=== PATIENT | male | born 1950 | race Caucasian/White ===

== ENCOUNTER 2017-12-02 03:43 | Inpatient (IN) | payer BC, MEDICAID ==
[~2017-12-02] VITALS: Ht 182.9 cm; Wt 199.6 kg
[~2017-12-02 03:43] MED LIST: BEN10T GT; BENA10TA9 PO; DOXY100C2 PO; FURO40TA PO; HYDR-531 PO; IBUP800T24 PO; MORP1CAP31 PO; MORP30TA PO; POTA1TAB4 PO; POTA20TA53 PO
[2017-12-02] MEDS ORDERED: KETOROLAC TROMETH 30 MG/ML 1ML VIAL IM ONE (04:45)
[2017-12-02] MEDS ORDERED: MORPHINE SULFATE 4 MG/ML SYR/VIAL IV ONE (04:45)
[2017-12-02 06:00] LABS: Basophils # (auto) 0 uL; Basophils % (auto) 0.2 % (0.0-2.0); Eosinophils # (auto) 0.1 uL; Eosinophils % (auto) 2.3 % (0.0-7.0); Hematocrit 29.1 % (41.0-53.0); Hemoglobin 9.8 g/dL (13.5-17.5); Lymphocytes # (auto) 0.7 uL; Lymphocytes % (auto) 13.1 % (10.0-50.0); Mean Corpuscular Hemoglobin 28.4 pg (28.0-32.0); Mean Corpuscular Hgb Conc. 33.6 g/dL (32.0-36.0); Mean Corpuscular Volume 84.7 fL (80.0-100.0); Monocytes # (auto) 0.5 uL; Monocytes % (auto) 9.6 % (0.0-12.0); Neutrophils # (auto) 4.1 uL; Neutrophils % (auto) 74.8 % (37.0-80.0); Platelet Count (auto) 273 10^3/uL (140-450); Red Blood Cells 3.44 10^6/uL (4.5-5.90); Red Cell Distribution Width 16.4 % (11.8-14.3); White Blood Cell 5.4 10^3/uL (4.4-10.8)
[2017-12-02 06:10] LABS: INR 0.95 (0.9-1.15); Partial Thromboplastin Time 26.4 sec (22.64-33.71); Prothrombin Time 10.4 sec (9.37-12.3)
[2017-12-02] MEDS ORDERED: CLINDAMYCIN 900MG IV 50 ML IV ONE (06:15)
[2017-12-02] MEDS ORDERED: PIPERACILLIN-TAZOB 3.375GM 50 ML IV ONE (06:15)
[2017-12-02 06:18] LABS: Albumin 2.8 g/dL (3.4-5.0); BUN/Creatinine Ratio 20.5; Bilirubin, Total 0.8 mg/dL (0.2-1.0); CRP High Sensitivity 2.32 mg/dL (< 0.3); Calcium 8.1 mg/dL (8.5-10.1); Potassium 3.8 mmol/L (3.5-5.1); Total Protein 7.3 g/dL (6.4-8.2)
[2017-12-02] MEDS ORDERED: ACETAMINOPHEN 500 MG TAB PO PRN (08:15)
[2017-12-02] MEDS ORDERED: BEN10T PO (10:43)
[2017-12-02] MEDS: cefTRIAXone 1GM/10ml IVPUSH 10 ML IV SCH (11:30)
[2017-12-02] MEDS: MORPHINE SULFATE 4 MG/ML SYR/VIAL IV PRN ×3 (11:31→20:43)
[2017-12-02] MEDS: FUROSEMIDE 40 MG/4 ML VIAL IV SCH (11:40)
[2017-12-02] MEDS: BENAZEPRIL HCL 10 MG TAB PO SCH (11:46)
[2017-12-02 13:00] VITALS: BP 150/80
[2017-12-02] MEDS: HYDROcodone-ACET 5/325MG TAB PO PRN ×2 (13:39→22:02)
[2017-12-02] MEDS: CLINDAMYCIN 600MG IV 50 ML IV SCH ×2 (15:32→22:02)
[2017-12-02 17:00] VITALS: BP 120/54
[2017-12-02 22:00] VITALS: BP 144/63
[2017-12-03] MEDS: MORPHINE SULFATE 4 MG/ML SYR/VIAL IV PRN ×4 (02:41→21:35)
[2017-12-03 05:27] VITALS: BP 140/53
[2017-12-03] MEDS: CLINDAMYCIN 600MG IV 50 ML IV SCH ×3 (05:42→21:34)
[2017-12-03] MEDS: HYDROcodone-ACET 5/325MG TAB PO PRN (05:42)
[2017-12-03] MEDS: cefTRIAXone 1GM/10ml IVPUSH 10 ML IV SCH (08:51)
[2017-12-03 09:00] VITALS: BP 144/77
[2017-12-03] MEDS: FUROSEMIDE 40 MG/4 ML VIAL IV SCH (11:00)
[2017-12-03] MEDS: BENAZEPRIL HCL 10 MG TAB PO SCH (11:01)
[2017-12-03] MEDS: HYDROcodone-ACET 10/325MG TAB PO PRN ×5 (11:04→23:59)
[2017-12-03 13:00] VITALS: BP 147/84
[2017-12-03 18:00] VITALS: BP 141/78
[2017-12-03] MEDS: PRO-STAT 64 30ML PO SCH (19:46)
[2017-12-03 22:00] VITALS: BP 144/65
[2017-12-04] MEDS: MORPHINE SULFATE 4 MG/ML SYR/VIAL IV PRN ×6 (01:43→22:10)
[2017-12-04] MEDS: HYDROcodone-ACET 10/325MG TAB PO PRN ×5 (04:10→21:22)
[2017-12-04 05:00] VITALS: BP 160/83
[2017-12-04] MEDS: CLINDAMYCIN 600MG IV 50 ML IV SCH ×3 (05:43→21:58)
[2017-12-04 08:00] VITALS: BP 146/72
[2017-12-04 08:17] VITALS: BP 146/72
[2017-12-04] MEDS: PRO-STAT 64 30ML PO SCH ×2 (08:55→17:49)
[2017-12-04] MEDS: ASCORBIC ACID 500 MG TAB PO SCH (09:34)
[2017-12-04] MEDS: BENAZEPRIL HCL 10 MG TAB PO SCH (09:34)
[2017-12-04] MEDS: MULTIPLE VITAMINS W/ MINERALS TAB PO SCH (09:34)
[2017-12-04] MEDS: FUROSEMIDE 40 MG/4 ML VIAL IV SCH ×3 (09:35→22:05)
[2017-12-04] MEDS: cefTRIAXone 1GM/10ml IVPUSH 10 ML IV SCH (09:35)
[2017-12-04] MEDS ORDERED: NITROGLYCERIN 0.4 MG SL TAB SL PRN (12:45)
[2017-12-04] MEDS ORDERED: MORPHINE SULFATE 4 MG/ML SYR/VIAL IV PRN (12:45)
[2017-12-04 13:26] VITALS: BP 152/79
[2017-12-04 17:20] VITALS: BP 130/80
[2017-12-04 22:00] VITALS: BP 158/85
[2017-12-05] MEDS: HYDROcodone-ACET 10/325MG TAB PO PRN ×4 (01:03→14:32)
[2017-12-05] MEDS: MORPHINE SULFATE 4 MG/ML SYR/VIAL IV PRN ×3 (02:28→11:12)
[2017-12-05 05:00] VITALS: BP 162/83
[2017-12-05] MEDS: CLINDAMYCIN 600MG IV 50 ML IV SCH ×2 (05:39→14:30)
[2017-12-05 05:54] LABS: Basophils # (auto) 0 uL; Basophils % (auto) 0.3 % (0.0-2.0); Eosinophils # (auto) 0.1 uL; Eosinophils % (auto) 1.8 % (0.0-7.0); Hematocrit 28.5 % (41.0-53.0); Hemoglobin 9.4 g/dL (13.5-17.5); Lymphocytes # (auto) 0.8 uL; Mean Corpuscular Hemoglobin 28.1 pg (28.0-32.0); Mean Corpuscular Volume 85.2 fL (80.0-100.0); Monocytes # (auto) 0.5 uL; Monocytes % (auto) 9.5 % (0.0-12.0); Neutrophils # (auto) 4.1 uL; Neutrophils % (auto) 73.4 % (37.0-80.0); Platelet Count (auto) 232 10^3/uL (140-450); Red Blood Cells 3.35 10^6/uL (4.5-5.90); Red Cell Distribution Width 16.2 % (11.8-14.3); White Blood Cell 5.6 10^3/uL (4.4-10.8)
[2017-12-05 06:11] LABS: Albumin 2.6 g/dL (3.4-5.0); BUN/Creatinine Ratio 12.2; Calcium 8.1 mg/dL (8.5-10.1); Potassium 4.1 mmol/L (3.5-5.1)
[2017-12-05 06:14] LABS: Bilirubin, Total 0.7 mg/dL (0.2-1.0); Total Protein 6.9 g/dL (6.4-8.2)
[2017-12-05] MEDS: ONDANSETRON HCL 4 MG/2 ML VIAL IV PRN ×3 (06:42→11:12)
[2017-12-05] MEDS: FUROSEMIDE 40 MG/4 ML VIAL IV SCH ×2 (06:42→14:31)
[2017-12-05] MEDS: PRO-STAT 64 30ML PO SCH ×2 (08:00→18:00)
[2017-12-05 09:15] VITALS: BP 140/88
[2017-12-05] MEDS: ASCORBIC ACID 500 MG TAB PO SCH (09:40)
[2017-12-05] MEDS: MULTIPLE VITAMINS W/ MINERALS TAB PO SCH (09:40)
[2017-12-05] MEDS: BENAZEPRIL HCL 10 MG TAB PO SCH (09:40)
[2017-12-05] MEDS: cefTRIAXone 1GM/10ml IVPUSH 10 ML IV SCH (09:41)
[2017-12-05 13:00] VITALS: BP 148/76
[2017-12-05 16:14] VITALS: BP 148/76
[2017-12-05 16:32] VITALS: BP 146/74
== END 2017-12-05 18:00 | disposition home or self-care (01) | DRG 727 ==
LOC: EDBD 03:43 → ER 03:43 → MERGE 03:44 → OVERFLOW 03:44 → WEST WING 09:25
PROVIDERS: ADMIT Nurse Practitioner Family; ATTEND Internal Medicine
DX: N49.2 Inflammatory disorders of scrotum (principal); R53.2 Functional quadriplegia; E44.0 Moderate protein-calorie malnutrition; I42.9 Cardiomyopathy, unspecified; I11.0 Hypertensive heart disease with heart failure; E66.2 Morbid (severe) obesity with alveolar hypoventilation; I50.9 Heart failure, unspecified; Z68.43 Body mass index [BMI] 50.0-59.9, adult; R60.9 Edema, unspecified; D64.9 Anemia, unspecified; M10.9 Gout, unspecified; M79.3 Panniculitis, unspecified; Z74.01 Bed confinement status; Z82.49 Family history of ischemic heart disease and other diseases of the circulatory system; Z98.84 Bariatric surgery status; Z88.5 Allergy status to narcotic agent; Z88.0 Allergy status to penicillin
CPT/HCPCS: 36415; 71045; 72131; 73560; 80053; 83880; 85025; 85610; 85730; 86141; 87040; 93005; 96372; 96374; 96375; J1885; J2405; J2543; J3490

== ENCOUNTER 2019-03-16 01:52 | Emergency (ER) | payer BC, MEDICAID ==
[~2019-03-16] VITALS: Ht 182.9 cm; Wt 204.1 kg
[~2019-03-16 01:52] MED LIST changes: -BEN10T GT; +BEN10T PO; -DOXY100C2 PO
[2019-03-16] MEDS ORDERED: cloNIDine HCL 0.1 MG TAB PO ONE (04:00)
[2019-03-16] MEDS ORDERED: MORPHINE SULFATE 4 MG/ML SYR/VIAL IV ONE (04:00)
[2019-03-16] MEDS ORDERED: ONDANSETRON HCL 4 MG/2 ML VIAL IV ONE (04:00)
[2019-03-16] MEDS ORDERED: KETOROLAC TROMETH 30 MG/ML 1ML VIAL IV ONE (07:30)
[2019-03-16 09:21] VITALS: BP 162/87
== END 2019-03-16 09:22 | disposition home or self-care (01) ==
LOC: ER 01:52 → EDBD 01:52 → ER 09:22
DX: S40.011A Contusion of right shoulder, initial encounter (principal); S80.02XA Contusion of left knee, initial encounter; M54.9 Dorsalgia, unspecified; G89.29 Other chronic pain; E66.01 Morbid (severe) obesity due to excess calories; E78.5 Hyperlipidemia, unspecified; I11.0 Hypertensive heart disease with heart failure; I50.9 Heart failure, unspecified; I25.10 Atherosclerotic heart disease of native coronary artery without angina pectoris; Z88.5 Allergy status to narcotic agent; Z88.0 Allergy status to penicillin; Z88.8 Allergy status to other drugs, medicaments and biological substances; Z79.899 Other long term (current) drug therapy; Z68.44 Body mass index [BMI] 60.0-69.9, adult; W01.198A Fall on same level from slipping, tripping and stumbling with subsequent striking against other object, initial encounter; Y93.89 Activity, other specified; Y99.8 Other external cause status; Y92.89 Other specified places as the place of occurrence of the external cause
CPT/HCPCS: 36415; 71045; 73030; 73060; 73562; 84484; 93005; 96374; 96375; 99284; J1885; J2270; J2405

== ENCOUNTER 2019-08-01 13:49 | Inpatient (IN) | payer OTHER, MEDICAID ==
[~2019-08-01] VITALS: Ht 182.9 cm; Wt 209.0 kg
[~2019-08-01 13:49] MED LIST changes: +FURO1TAB31 PO; -FURO40TA PO; +POTA-220 PO; -POTA20TA53 PO
[2019-08-01 15:42] LABS: Basophils # (auto) 0 uL; Basophils % (auto) 0.2 % (0.0-2.0); Eosinophils # (auto) 0.1 uL; Eosinophils % (auto) 1.9 % (0.0-7.0); Hematocrit 27.3 % (41.0-53.0); Hemoglobin 8.7 g/dL (13.5-17.5); Lymphocytes # (auto) 0.6 uL; Lymphocytes % (auto) 15.1 % (10.0-50.0); Mean Corpuscular Hemoglobin 27.1 pg (28.0-32.0); Mean Corpuscular Hgb Conc. 31.9 g/dL (32.0-36.0); Monocytes # (auto) 0.4 uL; Monocytes % (auto) 8.7 % (0.0-12.0); Neutrophils % (auto) 74.1 % (37.0-80.0); Platelet Count (auto) 250 10^3/uL (140-450); Red Blood Cells 3.21 10^6/uL (4.5-5.90); Red Cell Distribution Width 16.6 % (11.8-14.3); White Blood Cell 4.1 10^3/uL (4.4-10.8)
[2019-08-01 15:52] LABS: Albumin 2.8 g/dL (3.4-5.0); BUN/Creatinine Ratio 17.8; Calcium 8.2 mg/dL (8.5-10.1); Magnesium 2.3 mg/dL (1.6-2.6); Potassium 3.9 mmol/L (3.5-5.1)
[2019-08-01 15:55] LABS: Bilirubin, Total 0.6 mg/dL (0.2-1.0); Total Protein 7.6 g/dL (6.4-8.2)
[2019-08-01] MEDS ORDERED: CLINDAMYCIN 900MG IV 50 ML IV ONE (16:45)
[2019-08-01] MEDS ORDERED: POTASSIUM CHL 20 Meq TABLET PO ONE (17:00)
[2019-08-01] MEDS ORDERED: ONDANSETRON ODT 4 MG TAB PO ONE (17:00)
[2019-08-01] MEDS ORDERED: MORPHINE SULF INJ 2 MG/ML SYRINGE 1ML IV PRN (18:45)
[2019-08-01] MEDS ORDERED: traMADol HCL 50 MG TAB PO PRN (18:45)
[2019-08-01] MEDS ORDERED: NITROGLYCERIN 0.4 MG SL TAB SL PRN (18:45)
[2019-08-01] MEDS ORDERED: LACTULOSE 20Gm/30ML SOLN PO PRN (18:45)
[2019-08-01] MEDS ORDERED: ACETAMINOPHEN 500 MG TAB PO PRN (18:45)
[2019-08-01] MEDS ORDERED: DEXTROSE (50%) 50ML SYRG IV PRN (18:45)
[2019-08-01] MEDS ORDERED: PROMETHAZINE HCL 25 MG/ML 1ML IV PRN (18:45)
[2019-08-01] MEDS: SODIUM CHLORIDE 0.9% 1,000 ML IV SCH (18:50)
[2019-08-01 20:00] VITALS: BP 146/73
[2019-08-01] MEDS: MORPHINE SULF 30 mg ER tab PO SCH (20:49)
[2019-08-01 22:00] VITALS: BP 146/73
[2019-08-01] MEDS: InsuLIN REG 1unit/0.01ml Soln (100units/ml) SC SCH (22:00)
[2019-08-01] MEDS: CLINDAMYCIN 600MG IV 50 ML IV SCH (22:00)
[2019-08-01] MEDS: ACCU-CHEK COMFORT CURVE STRIP VI SCH (22:00)
[2019-08-01] MEDS ORDERED: PERCOT PO (22:09)
[2019-08-01] MEDS: OXYCODONE W/ ACETAMINOPHEN 5/325MG TABLET PO PRN (22:45)
--- NOTE | 2019-08-02 | NUR ---
Paged and spoke with hospitalist. Patient takes 2 percocet 10/325 at home for chronic pain as well as the morphine tablet 30 mg. Ordered is percocet 5/325. He did not receive anything in ER all day for pain and feeling withdraws as well. No new orders received at this time. Patient standing in room. Walker given. Needs assistance getting up out of bed and calls often due to pain. Will continue to monitor.
[2019-08-02] MEDS: OXYCODONE W/ ACETAMINOPHEN 5/325MG TABLET PO PRN ×6 (02:50→22:41)
[2019-08-02] MEDS: SODIUM CHLORIDE 0.9% 1,000 ML IV SCH (04:36)
[2019-08-02 04:52] VITALS: BP 121/78
[2019-08-02] MEDS: CLINDAMYCIN 600MG IV 50 ML IV SCH (06:28)
--- NOTE | 2019-08-02 06:28 | NUR ---
Patient crying in pain. Paged hospitalist again, awaiting return call. Pics taken of right lower extremity and back side of scrotum. Right lower extremity is looking more inflamed than earlier in the night. Weeping serous fluid. Cleansed with normal saline pat dry, placed 2 abdominal pads and wrapped with kerlix.
--- NOTE | 2019-08-02 06:39 | NUR ---
Received orders for toradol x1. Will carry out
--- NOTE | 2019-08-02 06:42 | NUR ---
called power bender operator to have tour escort see patient per patient request. Was told to call back at [phone]. Will endorse to nurse.
[2019-08-02] MEDS ORDERED: KETOROLAC TROMETH 30 MG/ML 1ML VIAL IV ONE (06:45)
[2019-08-02] MEDS: InsuLIN REG 1unit/0.01ml Soln (100units/ml) SC SCH ×2 (07:00→11:30)
[2019-08-02] MEDS: ACCU-CHEK COMFORT CURVE STRIP VI SCH ×2 (07:11→11:30)
[2019-08-02 09:00] VITALS: BP 131/71
[2019-08-02] MEDS ORDERED: LEVOFLOXACIN 500MG 100 ML IV SCH (10:00)
[2019-08-02] MEDS: MORPHINE SULF 30 mg ER tab PO SCH ×2 (10:27→22:16)
[2019-08-02] MEDS: PANTOPRAZOLE 40 MG TAB PO SCH (10:27)
[2019-08-02 13:00] VITALS: BP 120/62
[2019-08-02] MEDS ORDERED: LINEZOLID 600MG/300ML 300 ML IV SCH (16:00)
[2019-08-02 16:03] LABS: INR 1.01 (0.9-1.15); Partial Thromboplastin Time 28.6 sec (23.64-32.05)
[2019-08-02 17:22] VITALS: BP 125/67
--- NOTE | 2019-08-02 19:15 | NUR ---
Opening Shift Note received report from Uma HERNANDEZ. Assumed care of patient, awake and alert. No S/S of distress/SOB, complaining of lower back pain. Instructed on POC and to call for assist PRN, will continue to monitor for changes Q1hr and PRN.
[2019-08-02] MEDS: LINEZOLID 600MG/300ML 300 ML IV SCH (20:49)
[2019-08-02 22:00] VITALS: BP 127/64
--- NOTE | 2019-08-02 22:25 | NUR ---
Patient crying stating the pain medications doesn't help at all, requesting if he could have a different kind of medication. Paged Dr. Ordoñez, awaiting for call back.
--- NOTE | 2019-08-02 22:53 | NUR ---
Dr. Ordoñez called back with order, carried out and followed through.
[2019-08-03] MEDS: OXYCODONE W/ ACETAMINOPHEN 5/325MG TABLET PO PRN ×5 (03:46→23:07)
--- NOTE | 2019-08-03 04:30 | NUR ---
Dressing changed on RLE wound.
[2019-08-03 05:00] VITALS: BP 138/84
[2019-08-03] MEDS: MORPHINE SULFATE 4 MG/ML SYR/VIAL IV PRN ×3 (05:37→21:06)
[2019-08-03 05:49] LABS: Basophils # (auto) 0 uL; Basophils % (auto) 0.8 % (0.0-2.0); Eosinophils # (auto) 0.1 uL; Eosinophils % (auto) 2.7 % (0.0-7.0); Hemoglobin 9.5 g/dL (13.5-17.5); Lymphocytes # (auto) 0.8 uL; Lymphocytes % (auto) 17.2 % (10.0-50.0); Mean Corpuscular Hemoglobin 27.5 pg (28.0-32.0); Mean Corpuscular Hgb Conc. 32.7 g/dL (32.0-36.0); Mean Corpuscular Volume 84.3 fL (80.0-100.0); Monocytes # (auto) 0.5 uL; Monocytes % (auto) 11.2 % (0.0-12.0); Neutrophils % (auto) 68.1 % (37.0-80.0); Platelet Count (auto) 301 10^3/uL (140-450); Red Blood Cells 3.44 10^6/uL (4.5-5.90); Red Cell Distribution Width 17.1 % (11.8-14.3); White Blood Cell 4.4 10^3/uL (4.4-10.8)
[2019-08-03 06:31] LABS: BUN/Creatinine Ratio 20.2; Calcium 8.8 mg/dL (8.5-10.1); Potassium 4.5 mmol/L (3.5-5.1)
--- NOTE | 2019-08-03 07:10 | NUR ---
CALLED [facility]THODONTIC [facility]AND [facility] OFFICE AND PORTABLE PHONE. NO ANSWER ON EITHER PHONE. NEED A PICC LINE FOR 201. LABS PTT WNL AND CONSENT SIGNED BY PHYSICIAN AND PATIENT.
--- NOTE | 2019-08-03 07:47 | NUR ---
SPOKE TO HELGA BUENROSTROREAL ESTATE AGENT/BROKER INFORMED HER ABOUT THE ORDER FOR PICC LINE FOR HOME ANTIBIOTICS.
[2019-08-03 09:24] VITALS: BP 131/71
[2019-08-03] MEDS: LINEZOLID 600MG/300ML 300 ML IV SCH (09:59)
[2019-08-03] MEDS: PANTOPRAZOLE 40 MG TAB PO SCH (10:00)
[2019-08-03] MEDS: MORPHINE SULF 30 mg ER tab PO SCH ×2 (10:35→22:07)
[2019-08-03] MEDS: NYSTATIN TOPICAL POWDER 15GM TOP SCH ×2 (12:30→22:07)
[2019-08-03 13:00] VITALS: BP 98/64
--- NOTE | 2019-08-03 13:15 | NUR ---
PICC line placement Patient/Patient significant other educated on need for PICC line placement. All risks and benefits explained and all questions and concerns addressed prior to procedure. Noted past medical history and allergies with no contraindications. INR and Plt counts within acceptable range. 5 fr PICC line inserted via left basilic vein using [employer]'s [employer] US and Tip Location System. Sterile technique with maximum barrier precautions utilized. Blood return obtained from each of the 2 lumens and each flushed easily with NS using proper technique. PICC secured with Stat-lock; biodisc and occlusive dressing applied. Less than 5ml EBL noted during procedure. PICC line 53.5cm internally w/ 0cm externally. Stat portable chest x-ray obtained for PICC tip placement. To notify event staff when line able to be used. *Baseline Arm Circumference 44cm at 1cm above insertion site. PICC lot # [id number]. Note:
[2019-08-03] MEDS ORDERED: LIDOCAINE 1% (LOCAL ANESTH.) PF 5ml SDV ID ONE (13:30)
[2019-08-03] MEDS ORDERED: ERTAPENEM SOD 1 GM INJ VIAL IM SCH (14:00)
--- NOTE | 2019-08-03 14:01 | NUR ---
OK to use PICC line Xray completed. PCXR shows PICC line tip in the region of the mid SVC; radiologist confirmation pending. Daphney Eaton. notified now OK to use PICC line.
[2019-08-03] MEDS ORDERED: ERTAPENEM SOD 1 GM INJ VIAL IV SCH (15:30)
[2019-08-03 16:46] VITALS: BP 127/59
--- NOTE | 2019-08-03 17:07 | NUR ---
WOUND CARE NOTE: IN TO SEE PATIENT AT THIS TIME PER WOUND CARE CONSULT REQUEST. PATIENT WAS ADMITTED TO ON LICENSE OF [facility] WITH DIAGNOSIS OF FOOT CELLULITIS. CURRENT LYNETTE SCORE IS 16. PATIENT IS FULLY AMBULATORY. PATIENT NOTED TO HAVE WOUNDS UPON ADMIT. WOUND PHOTOS TAKEN AT THAT TIME BY BEDSIDE NURSE FOR REFERENCE. PATIENT IS OBESE, WEIGHING 209 KG. ORDERED SPECIALTY BARIATRIC AIR BED AT THIS TIME. PATIENT TO BE PLACED, PENDING DELIVERY BY [facility]. PATIENT IS NOTED TO HAVE A STAGE 3 PRESSURE INJURY TO THE LEFT UPPER POSTERIOR THIGH. WOUND MEASURES 2 X 1 X 0.2 CM. WOUND BED IS PALE RED, WITH THIN LAYER YELLOW SLOUGH NOTED. APPLIED THERAHONEY TO OPEN WOUND BED AREA FOR AUTOLYTIC DEBRIDEMENT. PERIWOUND IS EDEMATOUS, PALE RED/PINK. COVERED WOUND WITH OPTIFOAM GENTLE DRESSING. PATIENTS LEFT ANTERIOR BRIONES IS NOTED TO HAVE HYPERKERATOTIC SKIN IN MULTIPLE LAYERS. ANTERIOR BRIONES IS NOTED TO HAVE VENOUS STASIS DERMATITIS.BRIONES IS MACERATED D/T MODERATE AMOUNT OF SEROUS WEEPING. APPLIED THERAHONEY, OPTILOCK DRESSING, WRAPPING LEG WITH 2 LARGE KERLIX, STOCKINETTE. BILATERAL LEGS ARE WITH LYMPHEDEMA. PATIENT HAS VERY PENDULOUS ABDOMINAL PANNOUS AND SCROTUM, WITH HYPERKERATOTIC SKIN NOTED. LEFT OPEN TO AIR. RECOMMEND: ELEVATION OF BLE UP ONTO PILLOWS WHEN IN BED/CHAIR; SPECIALTY BARIATRIC AIR BED, DAILY/PRN DRESSING CHANGES TO LLE, LEF UPPER THIGH WOUNDS, DIETARY CONSULT, CONTINUED MONITORING BY WOUND CARE TEAM. Addendum: 08/03/19 at 1717 by Salome Verduzco RN Amended: Links added.
[2019-08-03] MEDS: ERTAPENEM GM in SODIUM CHL 0.9% 50 ML IV SCH (18:04)
--- NOTE | 2019-08-03 19:10 | NUR ---
Opening Shift Note Received report from Uma HERNANDEZ. Assumed care of patient, awake and alert. No S/S of distress/SOB, still with complaints of back pain. Instructed on POC and to call for assist PRN, will continue to monitor for changes Q1hr and PRN.
--- NOTE | 2019-08-03 21:00 | NUR ---
Johnathan Buck air mattress has been delivered to patient's room. Bed was set up and tried by the patient, however patient refused using it at this time stating he is not comfortable with the bed. Bed was placed in the west unit area in case patient change his mind.
[2019-08-03] MEDS: SODIUM CHLOR 0.9% PF (SALINE LOCK) 10ML VIAL/SYR IV SCH (22:06)
[2019-08-04] MEDS: MORPHINE SULFATE 4 MG/ML SYR/VIAL IV PRN ×5 (01:06→22:41)
[2019-08-04 05:00] VITALS: BP 123/69
[2019-08-04] MEDS: OXYCODONE W/ ACETAMINOPHEN 5/325MG TABLET PO PRN ×4 (05:25→20:08)
[2019-08-04 06:09] LABS: Basophils # (auto) 0 uL; Basophils % (auto) 0.5 % (0.0-2.0); Eosinophils # (auto) 0.1 uL; Hematocrit 24.4 % (41.0-53.0); Lymphocytes # (auto) 0.7 uL; Lymphocytes % (auto) 18.8 % (10.0-50.0); Mean Corpuscular Hemoglobin 27.7 pg (28.0-32.0); Mean Corpuscular Hgb Conc. 32.8 g/dL (32.0-36.0); Mean Corpuscular Volume 84.5 fL (80.0-100.0); Monocytes # (auto) 0.5 uL; Monocytes % (auto) 12.9 % (0.0-12.0); Neutrophils # (auto) 2.6 uL; Neutrophils % (auto) 65.8 % (37.0-80.0); Nucleated Red Blood Cells % 0.1 %; Platelet Count (auto) 203 10^3/uL (140-450); Red Blood Cells 2.88 10^6/uL (4.5-5.90); Red Cell Distribution Width 16.8 % (11.8-14.3); White Blood Cell 3.9 10^3/uL (4.4-10.8)
[2019-08-04 06:44] LABS: Potassium 4.4 mmol/L (3.5-5.1)
[2019-08-04 07:06] LABS: BUN/Creatinine Ratio 18.5; Calcium 8.4 mg/dL (8.5-10.1); Magnesium 2.2 mg/dL (1.6-2.6)
[2019-08-04 08:30] VITALS: BP 131/55
[2019-08-04] MEDS: ERTAPENEM GM in SODIUM CHL 0.9% 50 ML IV SCH (09:32)
[2019-08-04] MEDS: MORPHINE SULF 30 mg ER tab PO SCH ×2 (09:33→21:41)
[2019-08-04] MEDS: SODIUM CHLOR 0.9% PF (SALINE LOCK) 10ML VIAL/SYR IV SCH ×2 (09:33→22:37)
[2019-08-04] MEDS: PANTOPRAZOLE 40 MG TAB PO SCH (09:33)
[2019-08-04] MEDS: NYSTATIN TOPICAL POWDER 15GM TOP SCH ×2 (09:33→21:41)
[2019-08-04 12:30] VITALS: BP 128/76
[2019-08-04] MEDS ORDERED: FUROSEMIDE 40 MG/4 ML VIAL IV ONE (12:45)
--- NOTE | 2019-08-04 14:43 | NUR ---
NUTRITION CONSULT/ASSESSMENT NOTES Please refer to link notes of nutrition screen form filed under the intervention section of the plan of care for further details. Est. Needs based on AdBw (113 kg): 2250 kcal to 2850 kcal (20-25 kcal/kgBW), 113 gms to 137 gms pro (1.0-1.2 gms/kgBW). Will continue to monitor pertinent labs and reassess nutrient need prn Thank you for this consult. Addendum: 08/04/19 at [address] Amended: Links added.
[2019-08-04] MEDS: Ensure Enlive Strawberry 8oz Bottle PO SCH ×3 (15:04→21:43)
--- NOTE | 2019-08-04 16:00 | NUR ---
PAGED BELLY ROLLER AS400 OPERATOR, TALIB, FOR IV INVANZ AND DISCHARGE PLANNING.
[2019-08-04 17:00] VITALS: BP 139/77
[2019-08-04] MEDS: FUROSEMIDE 40 MG/4 ML VIAL IV SCH (17:31)
--- NOTE | 2019-08-04 19:20 | NUR ---
RECEIVED PATIENT, AWAKE, ALERT, ORIENTED X4. NO S/S OF RESPIRATORY DISTRESS. ORIENTED ON PLAN OF CARE. BED IS LOCKED AND IN LOWEST POSITION, SIDE RAILS UP X2, CALL LIGHT WITHIN REACH. WILL CONTINUE TO MONITOR
[2019-08-04 22:00] VITALS: BP 134/70
[2019-08-05] MEDS: OXYCODONE W/ ACETAMINOPHEN 5/325MG TABLET PO PRN ×4 (00:51→20:38)
[2019-08-05] MEDS: MORPHINE SULFATE 4 MG/ML SYR/VIAL IV PRN ×5 (02:43→23:39)
[2019-08-05 05:00] VITALS: BP 130/79
[2019-08-05] MEDS: FUROSEMIDE 40 MG/4 ML VIAL IV SCH ×3 (05:53→19:20)
[2019-08-05 05:56] LABS: BUN/Creatinine Ratio 22.5; Calcium 8.3 mg/dL (8.5-10.1); Potassium 4.5 mmol/L (3.5-5.1)
[2019-08-05] MEDS: Ensure Enlive Strawberry 8oz Bottle PO SCH ×4 (06:25→22:03)
--- NOTE | 2019-08-05 07:35 | NUR ---
CARE ENDORSED TO AM SHIFT RN
[2019-08-05 09:00] VITALS: BP 122/65
--- NOTE | 2019-08-05 09:32 | NUR ---
I faxed home IV ATB/home health order to [facility].
[2019-08-05] MEDS: NYSTATIN TOPICAL POWDER 15GM TOP SCH ×2 (09:36→22:03)
[2019-08-05] MEDS: MORPHINE SULF 30 mg ER tab PO SCH ×2 (09:37→22:03)
[2019-08-05] MEDS: ERTAPENEM GM in SODIUM CHL 0.9% 50 ML IV SCH (09:37)
[2019-08-05] MEDS: PANTOPRAZOLE 40 MG TAB PO SCH (09:37)
[2019-08-05] MEDS: SODIUM CHLOR 0.9% PF (SALINE LOCK) 10ML VIAL/SYR IV SCH ×2 (09:37→22:03)
--- NOTE | 2019-08-05 10:39 | NUR ---
Pt is an alert and oriented male that resides with his spouse, nicky, who is his primary joinery machinist. Pt has a cane and a fww in the home. Pt has also been followed by [facility] prior to admission. Per MD orders pt will need continued home health but for IV ABX upon discharge. Library Supervisor, Annalisa, to followup regarding contracted providers and authorization for home health services and provide that information to to complete home health order. Will continue to monitor and provide intervention as needed. Addendum: 08/05/19 at 1042 by GEOVANNA WILLINGHAM Amended: Links added.
--- NOTE | 2019-08-05 11:14 | NUR ---
1100 08/05/19 I called [facility] [phone] and spoke with Naheed to request inpatient authorization for this patient. Per Naheed, the tracking number previously provided is now an inpatient authorization number ([id number]). Naheed did receive the order for home IV ATB/home health, [facility] let her know we faxed home health portion to [facility], she said they can contact her for authorization if needed.
[2019-08-05 12:00] VITALS: BP 146/96
--- NOTE | 2019-08-05 12:34 | NUR ---
I spoke with Lynette at [facility], faxed her H&P, CXR, medication list as requested.
--- NOTE | 2019-08-05 12:40 | NUR ---
SPOKE TO HELGA AT [facility], QUESTIONS AND CONCERNS ADDRESSED. PER HELGA; WILL CALL BACK WITH FURTHER INSTRUCTIONS REGARDING HOME SERVICES FOR IV ABX INFUSION.
--- NOTE | 2019-08-05 14:01 | NUR ---
DR. SIMEON IN TO SEE PT. PT IN AGREEMENT WITH CARE. PER MD; PT WILL NEED TRANSPORTATION ARRANGEMENTS WHEN DISCHARGED HOME. CARE MANAGEMENT TEAM MADE AWARE OF TRANSPORTATION NEEDS UPON DISCHARGE.
--- NOTE | 2019-08-05 14:28 | NUR ---
D/C Planning Per consult for IV INVANZ 1 GM daily for 6 weeks. Insecticide Sprayer Annalisa will be processing IV antibiotic order. Contacted [facility] Ph:) Fax:) faxed medical records. Per Ghazala from [facility] Pt has been accepted and service to start within 48hrs upon d/c day. Informed DAVID Goyal. Addendum: 08/05/19 at 1432 by ANAMIKA ZAMORA Amended: Links added.
--- NOTE | 2019-08-05 14:29 | NUR ---
1420 08/05/19 I called [facility] Terra[employer] Layer Naheed, she stated that she has given authorization to [facility], they are accepting the patient. Waiting to hear back from YOLA Wilder-elizabet Farfan at [facility], they do not provide transportation home for patients.
--- NOTE | 2019-08-05 15:10 | NUR ---
PEDRO FROM [facility] INFORMED THAT INVANZ INFUSION IS SET. CARE MANAGEMENT DEPT. INFORMED; CARE MANAGEMENT DEPT. TO ARRANGE TRANSPORTATION.
--- NOTE | 2019-08-05 15:20 | NUR ---
I received a call from Lynette at [facility], they spoke with patient-delivery time set for 1030am tomorrow. [facility] to visit patient at 12 noon tomorrow.
--- NOTE | 2019-08-05 16:50 | NUR ---
WOUND CARE COMPLETED TO RIGHT BRIONES, DRESSING CHANGED, THERA-HONEY WITH OPTILOCK DRESSING PLACED. PICC LINE DRESSING CHANGED DUE TO BLOOD STAINED, STAT LOCK AND BIO PATCH. STERILE TECHNIQUE USED, PT TOLERATED PROCEDURE WELL.
[2019-08-05 17:00] VITALS: BP 107/80
--- NOTE | 2019-08-05 18:01 | NUR ---
CLAUS FROM [facility] AWARE OF PT'S TRANSPORT NEEDS PER REQUEST. PER CLAUS; WILL CALL BACK WITH FURTHER ARRANGEMENTS.
[2019-08-05 18:13] VITALS: BP 107/80
--- NOTE | 2019-08-05 18:30 | NUR ---
CHATO FROM [facility] INFORMED THAT [facility] CONTACTED [facility] FOR SERVICES. CHATO TO CALL BACK WITH TITLE 1 TUTOR TIME. PT AWARE OF STATUS, PT IN AGREEMENT WITH PLAN.
--- NOTE | 2019-08-05 18:47 | NUR ---
SISTER KULDEEP POWELL (TEL# [phone]) called and voices concern re: discharge with home health [place] services, per sister pt is refusing [facility] services and requesting another home health. She also stated pt need help at home, is unable to take care of him and their child who is paraplegic and is a total care. Will page hospitalist. Addendum: 08/05/19 at 1928 by Charline Em RN SISTER IS ALSO REQUESTING TO BE CALLED FOR ANY DISCHARGE PLANS.
--- NOTE | 2019-08-05 18:48 | NUR ---
Called Dr. Ordoñez and informed him re: pt's and sister's concern, per ok to hold DC and address whatever pt needs. Will order social service.
--- NOTE | 2019-08-05 19:01 | NUR ---
Went in to see pt, per pt he is refusing [place] services and blaming the nurses from home health about worsening of his leg wound. He verified about his sister concern and agreed about changing the home health company.
--- NOTE | 2019-08-05 19:10 | NUR ---
[facility] ARRIVED TO UNIT FOR CRYPTOGRAPHIC CLERK. ADVISED [facility] TRANSPORT TEAM THAT DISCHARGE WAS HELD BY . TRANSPORT SPOKE TO CHARGE NURSE.
--- NOTE | 2019-08-05 19:10 | NUR ---
SOCIAL SERVICE SILK SCREENER CALLED BACK AND WAS NOTIFIED RE:PT AND SISTER'S CONCERN, WILL ADDRESS IT TOMORROW. SOCIAL SERVICE WAS ORDERED.
[2019-08-05 21:45] VITALS: BP 126/70
[2019-08-06] MEDS: OXYCODONE W/ ACETAMINOPHEN 5/325MG TABLET PO PRN ×4 (00:54→16:27)
[2019-08-06] MEDS: MORPHINE SULFATE 4 MG/ML SYR/VIAL IV PRN (04:21)
[2019-08-06 05:43] VITALS: BP 146/75
[2019-08-06] MEDS: FUROSEMIDE 40 MG/4 ML VIAL IV SCH (05:56)
[2019-08-06] MEDS: Ensure Enlive Strawberry 8oz Bottle PO SCH ×2 (05:57→12:00)
--- NOTE | 2019-08-06 07:34 | NUR ---
CARE ENDORSED TO AM SHIFT RN
--- NOTE | 2019-08-06 07:44 | NUR ---
Opening Shift Note Assumed care of patient. Patient is awake alert and oriented. Patient is able to make needs known. No S/S of distress noted. Instructed patient on plan of care and to call for assist as needed. Will continue to monitor.
[2019-08-06 09:00] VITALS: BP 136/61
[2019-08-06] MEDS: MORPHINE SULF 30 mg ER tab PO SCH (10:40)
[2019-08-06] MEDS: ERTAPENEM GM in SODIUM CHL 0.9% 50 ML IV SCH (10:51)
[2019-08-06] MEDS: PANTOPRAZOLE 40 MG TAB PO SCH (10:51)
[2019-08-06] MEDS: NYSTATIN TOPICAL POWDER 15GM TOP SCH (10:52)
[2019-08-06] MEDS: SODIUM CHLOR 0.9% PF (SALINE LOCK) 10ML VIAL/SYR IV SCH (10:52)
--- NOTE | 2019-08-06 10:55 | NUR ---
Spoke to Hospitalist Spoke to MD Ordoñez, notified of patient's status including patient refused to go home yesterday because he requests to have "a different HH company". MD aware of patient's c/o pain and patient stating "pain is never less than a 10". Per MD Ordoñez, he provided prescription for Percocet and pt already on MS Contin at home and to cont that on d/c. Awaiting HH to be arranged by social research assistant. Will dc as ordered as soon as HH is arranged.
--- NOTE | 2019-08-06 11:45 | NUR ---
0930 08/06/19 Contacted Noelle at [facility] and requested authorization to be provided for patient's continued stay. Per Noelle, patient's stay has been authorized through yesterday 08/05. She will have adult protective caseworker Naheed call me regarding discharge plan for this patient.
--- NOTE | 2019-08-06 11:47 | NUR ---
1145 08/06/19 Received a message from Naheed at [facility]. [facility]heed regarding the plan of care for this patient and was told she is on the other line-per Greer she will have her give me a call back.
--- NOTE | 2019-08-06 12:25 | NUR ---
environmental services aide at bedside Ryan at bedside to speak to patient and patient's sister regarding HH.
--- NOTE | 2019-08-06 12:56 | NUR ---
Spoke to GER and MD [facility]ONE snf Per Annalisa manager of case management, recommending SNF due to patient's needs. I spoke to MD Ordoñez and informed him regarding rec from CM. New orders received for SNF transfer for IV abx and wound care, bariatric bed. Annalisa notified. Awaiting transfer at this time. Cont care
[2019-08-06 13:00] VITALS: BP 127/70
--- NOTE | 2019-08-06 13:07 | NUR ---
1300 08/06/19 I contacted [facility] Cane Weigher Naheed to discuss the plan of care for this patient-asked if they would authorized SNF placement for the IV ATB-she said they would if ordered by MD. I called Dr. Ordoñez and left message regarding the same.
--- NOTE | 2019-08-06 14:00 | NUR ---
Patient refusing SNF transfer patient and patient's sister refusing SNF at this time stating patient "needs to go back home". Patient's sister spoke to [facility] social worker. Awaiting HH?
--- NOTE | 2019-08-06 14:58 | NUR ---
WOUND CARE NOTE Wound care performed as ordered. Patient tolerated procedure well.
--- NOTE | 2019-08-06 16:20 | NUR ---
Discharge instructions given as ordered. insole department worker Earnestine and this rn at bedside to notify patient Home Health [facility] will be staring services within 24-48hrs patient agrees for discharge and verbalized understanding. Encourage to follow up with PMD as instructed. All questions and concerns addressed. Patient verbalized understanding. This rn asked patient if he would like me to discuss dc instructions and talk to his sister and he states "nope I can talk to her myself". Patient is alert and cognitive. Patient refusing dc wound photos at this time stating "No, they already got pictures". Medication reconciliation form completed and copy given to patient. Patient to be dc'd home with PICC line for IV abx as ordered per MD. PICC line noted intact, and patent. Telemetry unit returned to ICU and kusum Garcia notified. Patient awaiting last picker from [facility] at 1700. No distress noted at this time, pt requesting pain medication. Will medicate as ordered.
--- NOTE | 2019-08-06 16:53 | NUR ---
D/C Planning Followed up call to [facility] Ph:) spoke to Naheed. Advised Naheed Pt does not want to go go a [facility] and agrees to go home with home health. Per Naheed from [facility], [facility] will continue to care for patient. Contacted [facility] Ph:( [phone]) Fax:) faxed medical records. Per Ghazala from [facility] Pt has been accepted and service to start within 48hrs upon d/c day. DAVID Borrego was at bedside when information was given to Pt regarding home health and transportation co-pay of 195 dollars. Pt verbalize understanding d/c plan. Informed DAVID Borrego. Addendum: 08/06/19 at 1721 by ANAMIKA ZAMORA Amended: Links added.
[2019-08-06 17:00] VITALS: BP 134/66
--- NOTE | 2019-08-06 17:15 | NUR ---
D/C Planning Contacted [facility] transport Ph:) spoke to Wanda. Advised Wanda from [facility] to arrange transportation at 17:00 via [employer] with oxygen. Authorization was given to [facility] [id number]. Informed DAVID Borrego. Addendum: 08/06/19 at 1721 by ANAMIKA HUGGISN Amended: Links added.
--- NOTE | 2019-08-06 17:17 | NUR ---
Patient taken to ambulance via stretcher with all personal belongings, accompanied by [facility] staff and portable oxygen. Patient states he has oxygen at home already. No distress noted at time of departure.
== END 2019-08-06 17:20 | disposition home health service (06) | DRG 638 ==
LOC: EDBD 13:49 → ER 13:49 → TELE 13:50 → TELE-CENTR 19:44
PROVIDERS: ADMIT Internal Medicine; ATTEND Internal Medicine Geriatric Medicine
PROC: 02HV33Z Insertion of Infusion Device into Superior Vena Cava, Percutaneous Approach (ICD-10-PCS; principal; 2019-08-03)
DX: E11.69 Type 2 diabetes mellitus with other specified complication (principal); L03.115 Cellulitis of right lower limb; Z68.44 Body mass index [BMI] 60.0-69.9, adult; M86.8X6 Other osteomyelitis, lower leg; E66.01 Morbid (severe) obesity due to excess calories; I50.9 Heart failure, unspecified; D63.8 Anemia in other chronic diseases classified elsewhere; N20.0 Calculus of kidney; G89.29 Other chronic pain; I89.0 Lymphedema, not elsewhere classified; I11.0 Hypertensive heart disease with heart failure; Z82.49 Family history of ischemic heart disease and other diseases of the circulatory system; Z88.5 Allergy status to narcotic agent; Z88.0 Allergy status to penicillin; Z98.84 Bariatric surgery status; Z83.3 Family history of diabetes mellitus; Z90.49 Acquired absence of other specified parts of digestive tract
CPT/HCPCS: 36415; 36569; 71045; 80048; 80053; 82962; 83036; 83735; 85025; 85610; 85730; G0378; J1335; J1885; J1956; J3490; Q0162

== ENCOUNTER 2019-08-28 20:45 | Inpatient (IN) | payer OTHER, MEDICAID ==
[~2019-08-28] VITALS: Ht 182.9 cm; Wt 212.4 kg
[~2019-08-28 20:45] MED LIST changes: -BEN10T PO; -BENA10TA9 PO; -HYDR-531 PO; -IBUP800T24 PO; -MORP30TA PO; +PERCOT PO; -POTA-220 PO
[2019-08-28 22:48] LABS: Basophils # (auto) 0 uL; Lymphocytes # (auto) 0.5 uL; Monocytes # (auto) 0.4 uL; Red Cell Distribution Width 16.8 % (11.8-14.3)
[2019-08-28 22:50] LABS: Basophils % (auto) 0.3 % (0.0-2.0); Eosinophils # (auto) 0.1 uL; Eosinophils % (auto) 1.3 % (0.0-7.0); Hematocrit 25.9 % (41.0-53.0); Hemoglobin 8.5 g/dL (13.5-17.5); Lymphocytes % (auto) 11.9 % (10.0-50.0); Mean Corpuscular Hemoglobin 27.4 pg (28.0-32.0); Mean Corpuscular Hgb Conc. 32.7 g/dL (32.0-36.0); Mean Corpuscular Volume 83.9 fL (80.0-100.0); Monocytes % (auto) 8.8 % (0.0-12.0); Neutrophils # (auto) 3.5 uL; Neutrophils % (auto) 77.7 % (37.0-80.0); Platelet Count (auto) 177 10^3/uL (140-450); Red Blood Cells 3.09 10^6/uL (4.5-5.90); White Blood Cell 4.5 10^3/uL (4.4-10.8)
[2019-08-28 23:05] LABS: Alanine Aminotransferase 12 U/L (16-61); Albumin 2.7 g/dL (3.4-5.0); Anion Gap 3 (5-15); Aspartate Aminotransferase 25 U/L (15-37); BUN/Creatinine Ratio 21.5; Blood Urea Nitrogen 17 mg/dL (7-18); Calcium 8.1 mg/dL (8.5-10.1); Carbon Dioxide 30 mmol/L (21-32); Chloride 105 mmol/L (98-107); GFR African American 125 mL/min; GFR Non-African American 103 mL/min; Glucose 94 mg/dL (74-106); Magnesium 2.3 mg/dL (1.6-2.6); Potassium 4.2 mmol/L (3.5-5.1); Sodium 138 mmol/L (136-145)
[2019-08-28 23:10] LABS: Alkaline Phosphatase 80 U/L (45-117); Bilirubin, Total 0.8 mg/dL (0.2-1.0); Total Protein 7.7 g/dL (6.4-8.2)
[2019-08-29] MEDS ORDERED: MORPHINE SULF 15mg ER tab PO ONE (00:30)
[2019-08-29] MEDS ORDERED: FUROSEMIDE 40 MG/4 ML VIAL IV ONE (00:30)
[2019-08-29] MEDS ORDERED: ACETAMINOPHEN 325 MG TAB PO PRN (00:30)
[2019-08-29] MEDS ORDERED: LEVOFLOXACIN 750MG 150 ML IV ONE (00:30)
[2019-08-29] MEDS ORDERED: TEMAZEPAM 15 MG CAP PO PRN (00:30)
[2019-08-29] MEDS ORDERED: MORPHINE SULF INJ 2 MG/ML SYRINGE 1ML IV ONE (03:30)
[2019-08-29] MEDS ORDERED: MORPHINE SULF INJ 2 MG/ML SYRINGE 1ML ONE (03:30)
[2019-08-29] MEDS ORDERED: FUROSEMIDE 20 MG/2 ML VIAL IV SCH ×2 (06:00→14:00)
[2019-08-29] MEDS ORDERED: MORPHINE SULF 15mg ER tab PO SCH (10:00)
[2019-08-29] MEDS: LEVOFLOXACIN 750MG 150 ML IV SCH (10:11)
[2019-08-29] MEDS: FAMOTIDINE 20 MG TAB PO SCH ×2 (10:12→21:44)
[2019-08-29] MEDS: ENOXAPARIN SOD 40 MG/0.4 ML SYRINGE SC SCH (10:13)
--- NOTE | 2019-08-29 10:30 | NUR ---
WOUND CARE NOTE: Wound care consult received from nursing. Patient is in ER bed 3 on a gurney. Nursing has attempted to take photo of wound to left posterior thigh. Patient also with wounds to bilateral lower extremities due to history of chronic cellulitis. Patient is refusing assessment at this time. Doesn't want to turn and wants to wait until specialty bed arrives. TCB ordered from [facility]. Will follow up once patient is in bed and is agreeable to assessment.
--- NOTE | 2019-08-29 12:41 | NUR ---
REPORT RECEIVED FROM POLI HERNANDEZ OF ER AT BEDSIDE. PT ADMITTED TO RM 246A PER [facility]Y BED WITH DIAGNOSIS OF CELLULITIS OF RIGHT LEG AND GENERAL WEAKNESS. PATIENT AAOX4, ANXIOUS AND C/O PAIN IN HIS BACK. PATIENT STATED THAT HE HAS BEEN VERY UNCOMFORTABLE IN THE BED AND PAIN MED GIVEN IN ER DID NOT HELP. PT ORIENTATED TO STAFF, UNIT AND ROUTINE. PLAN OF CARE, MEDS, TREATMENTS DISCUSSED WITH PT AND PT VERBALIZED UNDERSTANDING. PATIENT WITH PICC LINE TO LEFT UPPER ARM BUT NOTED TO BE DIFFICULT TO FLUSH. PATIENT WAS ASKING FOR HIS TRAY BUT WAS NOT DELIVERED AT THIS TIME. WILL CALL DIETARY FOR SAME. DRESSINGS TO PATIENT'S RT LEG NOTED TO BE CLEAN, DRY AND INTACT. WILL TRY TO TAKE PHOTOS OF PT'S SKIN DURING THE SHIFT. WILL CONTINUE TO MONITOR PATIENT.
--- NOTE | 2019-08-29 14:00 | NUR ---
DR. SIMEON WAS IN TO SEE PATIENT. PATIENT WANTED TO GET OUT OF BED AND PATIENT GOT OUT BED WITH A LOT OF HELP AND ABLE TO STAND PER WALKER. PATIENT'S BED CHANGED TO REGULAR BED PATIENT STATED THAT HE WAS SLIDING WHEN GETTING OUT OF THAT BED AND WAS VERY UNCOMFORTABLE LYING ON IT. PATIENT VOIDED PER BASIN STANDING UP AND ABLE TO TRANSFER TO REGULAR BED WITH [address] FRANK WAS ALSO IN TO SEE PATIENT. DR. SIMEON LEFT NEW ORDERS. WILL CONTINUE TO MONITOR PATIENT.
[2019-08-29] MEDS: OXYCODONE W/ ACETAMINOPHEN 5/325MG TABLET PO PRN ×2 (15:01→21:43)
[2019-08-29 15:49] VITALS: BP 115/58
--- NOTE | 2019-08-29 17:45 | NUR ---
PATIENT GOT OUT OF BED AND BACK TO BED WITH 2 ASSISTS PER WALKER AND VOIDED PER BASIN WITHOUT DIFFICULTY. TOOK PHOTOS OF PATIENT'S SKIN AT THIS TIME. DRESSINGS TO RIGHT LEG CHANGED. NO C/O PAIN MADE BY PATIENT AT THIS TIME.
[2019-08-29 18:24] VITALS: BP 138/61
[2019-08-29 20:09] VITALS: BP 133/69
[2019-08-29] MEDS: POTASSIUM CHL 20 Meq TABLET PO SCH (21:38)
[2019-08-29] MEDS: MORPHINE SULF 15mg ER tab PO SCH ×2 (21:42→21:45)
[2019-08-29] MEDS: Ensure Enlive Strawberry 8oz Bottle PO SCH (21:46)
[2019-08-29] MEDS: SILVER SULFADIAZINE 1 % TOPICAL CREAM 50GM TOP SCH ×2 (21:47→21:48)
[2019-08-29 22:00] VITALS: BP 133/75
[2019-08-30] MEDS: Ensure Enlive Strawberry 8oz Bottle PO SCH ×4 (01:12→18:00)
[2019-08-30] MEDS: FUROSEMIDE 20 MG/2 ML VIAL IV SCH ×2 (01:17→12:00)
[2019-08-30] MEDS: ONDANSETRON HCL 4 MG/2 ML VIAL IV PRN ×2 (02:09→14:46)
[2019-08-30] MEDS: OXYCODONE W/ ACETAMINOPHEN 5/325MG TABLET PO PRN ×4 (02:10→18:38)
[2019-08-30 05:00] VITALS: BP 130/83
[2019-08-30 06:51] LABS: Basophils # (auto) 0 uL; Basophils % (auto) 0.3 % (0.0-2.0); Hematocrit 24.8 % (41.0-53.0); Lymphocytes # (auto) 0.8 uL; Monocytes # (auto) 0.5 uL; Red Blood Cells 2.97 10^6/uL (4.5-5.90); White Blood Cell 4.4 10^3/uL (4.4-10.8)
[2019-08-30 06:57] LABS: Eosinophils # (auto) 0 uL; Eosinophils % (auto) 1.1 % (0.0-7.0); Hemoglobin 8.2 g/dL (13.5-17.5); Mean Corpuscular Hemoglobin 27.6 pg (28.0-32.0); Mean Corpuscular Volume 83.6 fL (80.0-100.0); Neutrophils % (auto) 68.6 % (37.0-80.0); Platelet Count (auto) 173 10^3/uL (140-450); Red Cell Distribution Width 16.8 % (11.8-14.3)
[2019-08-30 07:07] LABS: Calcium 8.1 mg/dL (8.5-10.1); Potassium 4.2 mmol/L (3.5-5.1)
[2019-08-30 07:09] LABS: BUN/Creatinine Ratio 25.4
--- NOTE | 2019-08-30 07:40 | NUR ---
RECEIVED PT LYING IN BED SLEEPING INBED COMFORTABLY BUT WHEN AWAKENED C/O PAIN IN HER TAIL BONE 07/18 AND PT WILL BE MEDICATED FOR SAME. PT ASSISTED TO GET OUT OF BED PT STATED THAT HE FELT BETTER AFTER GETTING OUT OF BED. SHIFT ASSESSMENT DONE AND CHARTED. PLAN OF CARE, MEDS,AND TREATMENTS DISCUSSED WITH PT AND PT VERBALIZED UNDERSTANDING. WILL CONTINUE TO MONITOR PT.
--- NOTE | 2019-08-30 08:00 | NUR ---
PT STAYED STANDING UP PER WALKER AND VOIDED PER BASIN. PT. ASSISTED BACK TO PAIN AND PT MEDICATED FOR PAIN PER PRN ORDER. WILL CONTINUE TO MONITOR PT.
[2019-08-30 09:00] VITALS: BP 165/89
--- NOTE | 2019-08-30 09:40 | NUR ---
DR. SIMEON WAS IN TO SEE PT AND MD TALKED TO PT RE PLAN OF CARE. MD LEFT ORDER FOR PT'S DISCHARGE AND PRESCRIPTIONS WAS LEFT BY MD IN HIS CHART. PATIENT AWARE OF DISCHARGE ORDER.
[2019-08-30] MEDS ORDERED: CATHFLO ACTIVASE (ALTEPLASE) 2 MG VIAL IV ONE (09:45)
[2019-08-30] MEDS: MORPHINE SULF 15mg ER tab PO SCH ×2 (10:02→22:04)
[2019-08-30] MEDS: POTASSIUM CHL 20 Meq TABLET PO SCH (10:02)
[2019-08-30] MEDS: FAMOTIDINE 20 MG TAB PO SCH (10:02)
[2019-08-30] MEDS: ENOXAPARIN SOD 40 MG/0.4 ML SYRINGE SC SCH (10:02)
[2019-08-30] MEDS: SILVER SULFADIAZINE 1 % TOPICAL CREAM 50GM TOP SCH (10:02)
[2019-08-30] MEDS: LEVOFLOXACIN 750MG 150 ML IV SCH (10:03)
--- NOTE | 2019-08-30 11:24 | NUR ---
WOUND CARE NOTE: Wound care in to see patient per wound care request regarding skin integrity issue that are noted present on admission. Bedside nurse, took photographs of patient's skin integrity issue upon admission for reference. Patient is 68 years old male with admitting diagnosis of Possible Community Acquired Pneumonia. Patient has Discharge home order. He's assisted by his nurse, up in bed using walker, going to bathroom. He's in no stated pain at this time. His current Hernan score 15. Patient is morbidly obese weighs 497lbs and so Bariatric air bed ordered yesterday. DAVID Sanchez reported that bariatric air bed removed this morning per patent's request due, "unable to move better in TCB bed" Patient has history of Rt leg Cellulitis with chronic wound. His BLE has dry hyperkeratotic skin. His RLE is noted erythremic with open draining wound. He's receiving Daily dressing change with honey and absorbent pad. Patient's L posterior medial thigh, Rt buttock and scrotal area has open full thickness wound with no measurable depth. Patient's thigh and scrotal wounds are chronic from edema and moisture. Patient is receiving BID/PRN cleaning and application of Z Guard cream to L inner thigh wound,scrotum and buttocks area. RECOMMENDATION: Daily/PRN dressing change to RLE wound; BID/PRN cleaning and application of Z Guard cream to L medial thigh wound, scrotum, perineum per MD order, dietary consult due to presence of wound and obesity, redistribute pressure points with pillows, elevate BLE on pillows. Addendum: 08/30/19 at 1624 by Ly Yen RN Amended: Links added.
--- NOTE | 2019-08-30 11:30 | NUR ---
PT ASSISTED TO GET OUT OF BED PER WALKER AND TO GO TO THE BATHROOM TO VOID. PT C/O NOT FEELING WELL WITHOUT OXYGEN AND O2 PROVIDED TO PT. PT STATED THAT HE DID NOT FELL WELL AND COMFORTABLE TO GO HOME. WILL PHONE DR. SIMEON ABOUT PATIENT'S CONCERN.
--- NOTE | 2019-08-30 12:30 | NUR ---
DR. SIMEON CALLED BACK AFTER MESSAGE WAS LEFT FOR HIM TO CALL BACK. MD STATED THAT PATIENT HAS TO GO HOME THERE WAS NO REASON FOR PATIENT TO STAY. RELAYED SAME TO PATIENT AND PATIENT VOICED NO COMPLAIN AFTER.
[2019-08-30 13:00] VITALS: BP 143/89
--- NOTE | 2019-08-30 13:33 | NUR ---
ALTEPLASE INJECTED TO PT'S PICC LINE WHICH WAS SLUGGISH PER INSTRUCTIONS FROM PHARMACY.
--- NOTE | 2019-08-30 14:00 | NUR ---
ATTEMPTED TO ASPIRATE FROM PICC LINE BUT NOT BLOOD OBTAINED AT THIS TIME.
--- NOTE | 2019-08-30 15:00 | NUR ---
PHONED DR. SIMEON ABOUT PICC LINE NOT WORKING EVEN ALTEPLASE INJECTION AND MD ORDERED TO REMOVE PICC LINE AND TO SEND PT HOME WITHOUT IV ANTIBIOTIC. PT HAS PRESCRIPTION FOR PO LEVAQUIN.
--- NOTE | 2019-08-30 15:25 | NUR ---
SS note informed Naheed at [facility] that primary RN informed me that wd care consisted of cleanser spray, pat excess spray, thera honey, abd pad and wrapped in Kerlix. I asked primary RN to write that in wd care order so I can fax to [facility] at fax [phone]
--- NOTE | 2019-08-30 16:55 | NUR ---
D/C planning Per consult for home health for physical therapy and wound care, shower chair and commode. Contact [facility] Ph:) Fax:) faxed medical records requesting home health and DME information. Per [employer] Administrator Naheed Trejo will resume care for patient and [employer] will be delivering commode to bedside. Per Naheed from [facility] shower chair will not be approved due to patient not having coverage benefits. Contact [facility]:) Fax:) faxed medical records. Per Ghazala from [facility] they will resume service for patient within 48hrs upon d/c day. Contact [employer] ) Fax:) faxed medical records. Per Aleida from [employer] commode will be deliver to bedside at 17:30. Contact [facility] Ph:) spoke to Shwetha. Advised Shwetha from [facility] to arrange transportation at 18:45 via gurney with oxygen. I also provided weight to [facility] transportation and authorization # [id number]. Informed DAVID Vinson. Addendum: 08/30/19 at 1710 by ANAMIKA ZAMORA Amended: Links added.
[2019-08-30 17:09] VITALS: BP 127/61
[2019-08-30 18:05] VITALS: BP 143/89
--- NOTE | 2019-08-30 18:30 | NUR ---
PICC LINE REMOVED PER PROTOCOL. PRESSURE APPLIED TO ITE AND DRY DRESSING APPLIED AFTER. OLD CATH TIP NOTED TO BE INTACT. PT TOLERATED THE PROCEDURE WELL.
--- NOTE | 2019-08-30 18:45 | NUR ---
DISCHARGE INSTRUCTIONS AND PRESCRIPTIONS GIVEN TO PT AND PT VERBALIZED UNDERSTANDING.
--- NOTE | 2019-08-30 18:50 | NUR ---
CLAUS FROM [facility] CALLED AND STATED THAT THEY WILL NOT BE ABLE TO TAKE PT HOME NO ONE WAS ANSWERING AT HOME. TOLD PT ABOUT IT AND HE GAVE ME HIS PHONE # AND EMERSON STATED THAT THAT WAS THE NUMBER THEY WERE CALLING. SHE STATED TO HAVE THE CALL THEM SO THAT THEY CAN PICK HIM UP.
--- NOTE | 2019-08-30 19:00 | NUR ---
PT GOT HOLD OF HIS AND WAS GIVEN THE NUMBER TO CALL SO THAT [facility] CAN TAKE PT HOME.
--- NOTE | 2019-08-30 19:05 | NUR ---
REPORT GIVEN TO FARIDA HERNANDEZ RE [facility] AND THAT PT ALREADY HAD ALL THE PAPERS AND DISCHARGE INSTRUCTION. PT'S DRESSING WAS ALREADY CHANGED.
--- NOTE | 2019-08-30 19:20 | NUR ---
Opening Shift Note Assumed care of patient, awake and alert. No S/S of distress/SOB or pain. Instructed on POC and to call for assist PRN, will continue to monitor for changes Q1hr and PRN.
--- NOTE | 2019-08-30 20:30 | NUR ---
[facility] here for transport of patient, but unable to transport with current gurney. They have requested the proper (bariatric) gurney. Waiting for call back on ETA for new transport. Patient back in bed and resting.
--- NOTE | 2019-08-30 22:40 | NUR ---
Discharge Discharge instructions and follow up care given as ordered by Antoine HERNANDEZ. All questions and concerns addressed by Antoine HERNANDEZ. Patient verbalized understanding per Antoine HERNANDEZ. IV removed with catheter intact by this RN, pressure dressing applied. Patient taken to vehicle via bariatric gurney by [facility] staff with all personal belongings, no distress noted at time of departure.
--- NOTE | 2019-09-09 08:50 | NUR ---
Assessment Pt is a 68 yr old alert and oriented male. Pt lives with and paraplegic son on a vent. 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 Pt's , Linda, is pt's emergency contact at [phone]. Pt uses a power chair to ambulate and states that he is unable to get in his shower, so he uses a wash cloth or "hoses himself off outside". Pt stated that he needs a large commode to assist with toileting and needs a large shower chair to assist with bathing. SW asked pt's nurse to put in a SS consult for the items. Pt states that he is not able to cook or clean for himself and that his assists. Pt was admitted due to severe weakness. Pt states that he gets income and has an AD on file. Pt stated that he might be discharged today and will get transport from ambulance on [facility]. Pt plans to d/c home upon medical clearance. Addendum: 09/09/19 at 0851 by BUD BARRIENTOS Amended: Links added.
== END 2019-08-30 22:40 | disposition home or self-care (01) | DRG 291 ==
LOC: EDBD 20:45 → ER 20:50 → OVERFLOW 20:51 → EAST 08-29 12:43
PROVIDERS: ADMIT Nurse Practitioner; ATTEND Internal Medicine Geriatric Medicine
DX: I11.0 Hypertensive heart disease with heart failure (principal); J18.9 Pneumonia, unspecified organism; L03.115 Cellulitis of right lower limb; L03.116 Cellulitis of left lower limb; J44.0 Chronic obstructive pulmonary disease with (acute) lower respiratory infection; I89.0 Lymphedema, not elsewhere classified; I50.33 Acute on chronic diastolic (congestive) heart failure; E66.01 Morbid (severe) obesity due to excess calories; D63.8 Anemia in other chronic diseases classified elsewhere; D50.9 Iron deficiency anemia, unspecified; Z82.49 Family history of ischemic heart disease and other diseases of the circulatory system; Z88.0 Allergy status to penicillin; Z88.5 Allergy status to narcotic agent; Z83.3 Family history of diabetes mellitus; Z90.49 Acquired absence of other specified parts of digestive tract
CPT/HCPCS: 36415; 71045; 80048; 80053; 82962; 83605; 83735; 83880; 84484; 85025; 87040; 87081; 93005; 93306; 96365; 96375; G0378; J1956; J2405

== ENCOUNTER 2020-05-09 12:18 | Inpatient (IN) | payer OTHER ==
[~2020-05-09] VITALS: Ht 182.9 cm; Wt 162.2 kg
[2020-05-09] MEDS ORDERED: SODIUM CHLORIDE 0.9% 1,000 ML IV ONE (12:48)
[2020-05-09] MEDS ORDERED: NALOXONE HCL 0.4 MG/ML VIAL IV ONE (13:00)
[2020-05-09 13:35] LABS: Basophils # (auto) 0 10 ^3/uL (0-0.2); Basophils % (auto) 0.1 % (0.0-2.0); Eosinophils # (auto) 0 10 ^3/uL (0-0.8); Hematocrit 28.4 % (41.0-53.0); Lymphocytes # (auto) 0.2 10 ^3/uL (0.4-5.4); Lymphocytes % (auto) 2.2 % (10.0-50.0); Mean Corpuscular Hemoglobin 27.8 pg (28.0-32.0); Mean Corpuscular Hgb Conc. 31.7 g/dL (32.0-36.0); Mean Corpuscular Volume 87.9 fL (80.0-100.0); Monocytes # (auto) 0.3 10 ^3/uL (0-1.3); Monocytes % (auto) 3.9 % (0.0-12.0); Neutrophils # (auto) 8.1 10 ^3/uL (1.6-8.6); Neutrophils % (auto) 93.8 % (37.0-80.0); Platelet Count (auto) 184 10^3/uL (140-450); Red Blood Cells 3.23 10^6/uL (4.5-5.90); Red Cell Distribution Width 18.3 % (11.8-14.3); White Blood Cell 8.6 10^3/uL (4.4-10.8)
[2020-05-09 13:54] LABS: Albumin 2.9 g/dL (3.4-5.0); BUN/Creatinine Ratio 20.8; Calcium 8.5 mg/dL (8.5-10.1); Potassium 3.7 mmol/L (3.5-5.1)
[2020-05-09 14:01] LABS: Bilirubin, Total 1.7 mg/dL (0.2-1.0); Total Protein 8.2 g/dL (6.4-8.2)
[2020-05-09] MEDS ORDERED: ACETAMINOPHEN IV 1000 MG/100ML (10MG/ML) IV PRN ×2 (14:50→15:45)
[2020-05-09] MEDS ORDERED: ONDANSETRON HCL 4 MG/2 ML VIAL IV PRN (20:45)
[2020-05-09] MEDS ORDERED: ACETAMINOPHEN 500 MG TAB PO PRN (20:45)
[2020-05-09] MEDS ORDERED: MORPHINE SULF INJ 2 MG/ML SYRINGE 1ML IV PRN (20:45)
[2020-05-09] MEDS ORDERED: BUMETANIDE 1 MG TAB PO ONE (20:45)
[2020-05-09] MEDS ORDERED: HYDROcodone-ACET 5/325MG TAB PO PRN (20:45)
[2020-05-09] MEDS ORDERED: DOCUSATE SOD 100 MG CAP PO PRN (20:45)
[2020-05-09] MEDS ORDERED: VITAMINS A & D (TOPICAL) OINT 5GM TOP ONE (20:45)
[2020-05-09] MEDS ORDERED: FUROSEMIDE 40 MG/4 ML VIAL IV ONE (20:45)
[2020-05-09] MEDS ORDERED: LORazepam 0.5 MG TAB PO PRN (20:45)
[2020-05-09] MEDS ORDERED: VITAMINS A & D (TOPICAL) OINT 5GM TOP PRN (20:45)
[2020-05-09] MEDS ORDERED: NITROGLYCERIN 0.4 MG SL TAB SL PRN (20:45)
[2020-05-09] MEDS ORDERED: ALUM & MAG HYDROX-SIMETH LIQ(MAALOX) 30 ML PO PRN (20:45)
[2020-05-09] MEDS ORDERED: ACETAMINOPHEN 325 MG TAB PO PRN (20:45)
[2020-05-09] MEDS ORDERED: DOXYCYCLINE 100MG/250ML 250 ML IV SCH (22:00)
[2020-05-09] MEDS: APIXABAN 5 MG TAB PO SCH (22:00)
[2020-05-09] MEDS: METOPROLOL TARTRATE 25 MG TAB PO SCH (22:00)
[2020-05-09] MEDS: ATORVASTATIN 20 MG TAB PO SCH (22:00)
[2020-05-09] MEDS ORDERED: ALBUTEROL SULF HFA 90MCG INH 200DOSE IN SCH (22:00)
[2020-05-09] MEDS: MORPHINE SULF INJ 2 MG/ML SYRINGE 1ML IV PRN (22:10)
[2020-05-09 23:03] LABS: Basophils # (auto) 0 10 ^3/uL (0-0.2); Basophils % (auto) 0.1 % (0.0-2.0); Eosinophils # (auto) 0 10 ^3/uL (0-0.8); Hemoglobin 8.9 g/dL (13.5-17.5); Lymphocytes # (auto) 0.2 10 ^3/uL (0.4-5.4); Mean Corpuscular Hemoglobin 28.3 pg (28.0-32.0); Mean Corpuscular Hgb Conc. 31.8 g/dL (32.0-36.0); Mean Corpuscular Volume 89.1 fL (80.0-100.0); Monocytes # (auto) 0.2 10 ^3/uL (0-1.3); Monocytes % (auto) 1.8 % (0.0-12.0); Neutrophils # (auto) 9.8 10 ^3/uL (1.6-8.6); Neutrophils % (auto) 96.1 % (37.0-80.0); Platelet Count (auto) 150 10^3/uL (140-450); Red Blood Cells 3.14 10^6/uL (4.5-5.90); Red Cell Distribution Width 18.3 % (11.8-14.3); White Blood Cell 10.2 10^3/uL (4.4-10.8)
[2020-05-09 23:21] LABS: Albumin 2.5 g/dL (3.4-5.0); Calcium 8.3 mg/dL (8.5-10.1); Magnesium 2.5 mg/dL (1.6-2.6); Potassium 3.7 mmol/L (3.5-5.1)
[2020-05-09 23:29] LABS: Bilirubin, Total 1.6 mg/dL (0.2-1.0); CRP High Sensitivity 5.62 mg/dL (< 0.3); Total Protein 7.6 g/dL (6.4-8.2)
[2020-05-10] VITALS (7 sets, daily range): BP systolic 134–146; BP diastolic 66–83
--- NOTE | 2020-05-10 03:00 | NUR ---
tele admit from ED pt arrived via stretcher awake alert and oriented. pt on 4L nc no respiratory distress noted or expressed. pt requireed four staff to transfer to bed with slide board. 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 no open wounds on body. pt reports he is typically able to ambulate at home via walker. pt oriented to this nurse, bed control, use of call light. pt updated on plan of care. pt complaint of pain in right knee, this nurse to medicate per MD and MAR. call light in reach, pt encouraged to call as needed. this nurse to round q1hr and prn. Addendum: 05/10/20 at 0656 by MALENA CAMPOS RN RN pt refuses to be turned in order to remove slider sheet
[2020-05-10] MEDS: MORPHINE SULF INJ 2 MG/ML SYRINGE 1ML IV PRN ×2 (03:54→08:50)
[2020-05-10 05:51] LABS: Basophils # (auto) 0 10 ^3/uL (0-0.2); Eosinophils # (auto) 0 10 ^3/uL (0-0.8); Hematocrit 27.7 % (41.0-53.0); Hemoglobin 8.9 g/dL (13.5-17.5); Lymphocytes # (auto) 0.2 10 ^3/uL (0.4-5.4); Lymphocytes % (auto) 2.3 % (10.0-50.0); Mean Corpuscular Hemoglobin 28.3 pg (28.0-32.0); Mean Corpuscular Hgb Conc. 32.1 g/dL (32.0-36.0); Mean Corpuscular Volume 88.4 fL (80.0-100.0); Monocytes # (auto) 0.2 10 ^3/uL (0-1.3); Neutrophils # (auto) 7.3 10 ^3/uL (1.6-8.6); Neutrophils % (auto) 95.7 % (37.0-80.0); Platelet Count (auto) 130 10^3/uL (140-450); Red Blood Cells 3.14 10^6/uL (4.5-5.90); Red Cell Distribution Width 18.1 % (11.8-14.3); White Blood Cell 7.6 10^3/uL (4.4-10.8)
[2020-05-10] MEDS ORDERED: FUROSEMIDE 40 MG/4 ML VIAL IV SCH (06:00)
[2020-05-10 06:02] LABS: Albumin 2.5 g/dL (3.4-5.0); Magnesium 2.1 mg/dL (1.6-2.6); Potassium 3.4 mmol/L (3.5-5.1)
[2020-05-10 06:12] LABS: BUN/Creatinine Ratio 24.4; Bilirubin, Total 1.6 mg/dL (0.2-1.0); CRP High Sensitivity 8.29 mg/dL (< 0.3); Calcium 8.4 mg/dL (8.5-10.1); Phosphorus 3.4 mg/dL (2.5-4.90); Total Protein 7.5 g/dL (6.4-8.2)
--- NOTE | 2020-05-10 06:30 | NUR ---
pt reports allergy to Lee, despite earlier in shift denying any allergy besides PCN. pt reports "i get itchy" when asked what happens. pt denies issues at this time. will note allergy and make dayshift RN aware. call light in reach, will continue to monitor.
--- NOTE | 2020-05-10 06:54 | NUR ---
wound photos taken of bilateral lower extremities as well as growth off of right hip. nothing is open or bleeding. right lower extremity is weeping, absorbant pad placed.
[2020-05-10] MEDS: LISINOPRIL 5 MG TAB PO SCH (08:44)
[2020-05-10] MEDS: ASPirin 81 mg TAB PO SCH (08:44)
[2020-05-10] MEDS: APIXABAN 5 MG TAB PO SCH ×2 (08:46→21:55)
[2020-05-10] MEDS: METOPROLOL TARTRATE 25 MG TAB PO SCH ×2 (08:49→21:57)
[2020-05-10] MEDS: PANTOPRAZOLE 40 MG/10 ML VIAL INJ IV SCH (08:57)
[2020-05-10] MEDS ORDERED: DexAMETHasone SOD PHOS 10MG/1ML VIAL INJ IV SCH (10:00)
[2020-05-10] MEDS ORDERED: ASCORBIC ACID 1,000 MG TAB PO SCH (10:00)
[2020-05-10] MEDS ORDERED: CHOLECALCIFEROL (VITD3) 2,000 UNIT CAP PO SCH (10:00)
[2020-05-10] MEDS ORDERED: BUMETANIDE 1 MG TAB PO SCH (10:00)
[2020-05-10] MEDS ORDERED: ENOXAPARIN SOD 40 MG/0.4 ML SYRINGE SC SCH (10:00)
[2020-05-10] MEDS ORDERED: ZINC SULFATE 220mg CAP or TAB PO SCH (10:00)
--- NOTE | 2020-05-10 11:06 | NUR ---
Received phone call from microbiology per [facility] patient blood cultures came back positive (see microbiology for results) Doctor Tiago paged to inform of results. Awaiting call back.
[2020-05-10] MEDS ORDERED: VANCOMYCIN PER PHARMACY 0 MG IV SCH (11:15)
[2020-05-10] MEDS ORDERED: VANCOMYCIN 1GM/250ML 250 ML IV ONE (11:30)
[2020-05-10] MEDS ORDERED: MORPHINE SULF 30 mg ER tab PO SCH (14:00)
[2020-05-10] MEDS: levoFLOXacin 500MG 100 ML IV SCH (14:00)
[2020-05-10] MEDS ORDERED: POTASSIUM CHL 20 Meq TABLET PO ONE (14:15)
[2020-05-10] MEDS ORDERED: MORPHINE SULF 30 mg ER tab PO ONE (16:15)
[2020-05-10] MEDS: VANCOMYCIN 1GM/250ML 250 ML IV SCH ×2 (16:30→21:41)
[2020-05-10] MEDS: FUROSEMIDE 40 MG/4 ML VIAL IV SCH (18:26)
--- NOTE | 2020-05-10 18:30 | NUR ---
Patient transferred to room 291A care endorsed to Nata HERNANDEZ.
--- NOTE | 2020-05-10 18:42 | NUR ---
PATIENT TRANSFERRED FROM [facility]. PATIENT ASSESSED AT THIS TIME. PATIENT ORIENTED TO RN AND ROOM. AWAITING ENGINEERING FOR CALL LIGHT.
--- NOTE | 2020-05-10 19:45 | NUR ---
Opening Shift Note Assumed care of patient, awake and alert. No S/S of distress/SOB. Complained of moderate generalized pain. Instructed on POC and to call for assist PRN, patient verbalized understanding. Bed in lowest position, bed alarm on, call light within reach, will continue to monitor for changes Q1hr and PRN.
[2020-05-10] MEDS: MORPHINE SULF 30 mg ER tab PO SCH (21:55)
[2020-05-10] MEDS: ATORVASTATIN 20 MG TAB PO SCH (21:56)
--- NOTE | 2020-05-10 22:30 | NUR ---
Dressing change to bilateral legs. Cleansed wound with cleanser and patted dry. Covered with Abd pads and wrapped with kerlix, patient tolerated well. Wound consult pending at this time
[2020-05-11] MEDS: VANCOMYCIN 1GM/250ML 250 ML IV SCH ×4 (03:18→21:22)
[2020-05-11] MEDS: OXYCODONE W/ ACETAMINOPHEN 5/325MG TABLET PO PRN ×4 (03:31→20:09)
[2020-05-11 05:00] VITALS: BP 144/70
[2020-05-11] MEDS: FUROSEMIDE 40 MG/4 ML VIAL IV SCH ×2 (05:13→17:50)
[2020-05-11] MEDS: MORPHINE SULF 30 mg ER tab PO SCH ×3 (06:04→21:34)
[2020-05-11] MEDS: metOLazone 5 MG TAB PO SCH ×2 (06:06→09:19)
[2020-05-11 08:23] LABS: Basophils # (auto) 0 10 ^3/uL (0-0.2); Basophils % (auto) 0.2 % (0.0-2.0); Eosinophils # (auto) 0 10 ^3/uL (0-0.8); Eosinophils % (auto) 0.1 % (0.0-7.0); Hematocrit 28.3 % (41.0-53.0); Lymphocytes # (auto) 0.5 10 ^3/uL (0.4-5.4); Lymphocytes % (auto) 8.3 % (10.0-50.0); Mean Corpuscular Hgb Conc. 31.9 g/dL (32.0-36.0); Mean Corpuscular Volume 87.6 fL (80.0-100.0); Monocytes # (auto) 0.4 10 ^3/uL (0-1.3); Monocytes % (auto) 7.3 % (0.0-12.0); Neutrophils % (auto) 84.1 % (37.0-80.0); Platelet Count (auto) 150 10^3/uL (140-450); Red Blood Cells 3.23 10^6/uL (4.5-5.90); Red Cell Distribution Width 17.9 % (11.8-14.3); White Blood Cell 5.9 10^3/uL (4.4-10.8)
[2020-05-11 08:40] LABS: Calcium 8.6 mg/dL (8.5-10.1)
[2020-05-11 08:42] LABS: BUN/Creatinine Ratio 27.6
[2020-05-11 09:05] VITALS: BP 133/87
[2020-05-11] MEDS: PANTOPRAZOLE 40 MG/10 ML VIAL INJ IV SCH (09:12)
[2020-05-11] MEDS: levoFLOXacin 500MG 100 ML IV SCH (09:12)
[2020-05-11] MEDS: METOPROLOL TARTRATE 25 MG TAB PO SCH ×3 (09:17→21:33)
[2020-05-11] MEDS: ASPirin 81 mg TAB PO SCH (09:18)
[2020-05-11] MEDS: LISINOPRIL 5 MG TAB PO SCH (09:19)
[2020-05-11] MEDS: APIXABAN 5 MG TAB PO SCH (09:19)
[2020-05-11] MEDS ORDERED: POTASSIUM CHL 20 Meq TABLET PO ONE (11:00)
[2020-05-11] MEDS: Ensure Enlive Strawberry 8oz Bottle PO SCH ×2 (12:00→17:39)
[2020-05-11 12:28] VITALS: BP 148/78
--- NOTE | 2020-05-11 13:14 | NUR ---
PER PRISCILLA CALLEJSA RN INSTRUCTED TO HOLD ELIQUIS X3 DAYS IN ORDER TO DO SUPRAPUBIC CATHETER PLACEMENT
[2020-05-11 16:42] VITALS: BP 143/80
--- NOTE | 2020-05-11 19:35 | NUR ---
Opening Shift Note Assumed care of patient, awake and alert. No S/S of distress/SOB. Pt stating having pain of 12 in his head and neck. Pt to be given prescribed pain medication. Safety measures in place, bed in lowest position, bed rails raised x2, call light within reach. Instructed on POC and to call for assist PRN, will continue to monitor for changes Q1hr and PRN.
--- NOTE | 2020-05-11 20:15 | NUR ---
Pt states that he soiled the bed and is having severe urinary frequency. Five staff members recruited in order to perform linen change due to the size of the patient. Pt does not tolerate turning and changing positions well but verbalized understanding of the need to change out soiled linens. Pt returned to comfortable position. Pt advised to call for assistance PRN. Will continue to monitor.
[2020-05-11] MEDS: POTASSIUM CHL 20 Meq TABLET PO SCH (21:23)
[2020-05-11] MEDS: ATORVASTATIN 20 MG TAB PO SCH (21:34)
[2020-05-11 22:50] VITALS: BP 160/83
[2020-05-12] MEDS: Ensure Enlive Strawberry 8oz Bottle PO SCH ×5 (02:51→23:47)
[2020-05-12] MEDS: OXYCODONE W/ ACETAMINOPHEN 5/325MG TABLET PO PRN ×5 (03:23→22:14)
[2020-05-12] MEDS: VANCOMYCIN 1GM/250ML 250 ML IV SCH ×3 (03:23→14:22)
[2020-05-12 04:57] VITALS: BP 129/68
--- NOTE | 2020-05-12 05:18 | NUR ---
Linen change performed. Wound dressing on right calf soiled with urine. Dressing removed, sprayed with cleaning solution, 3 absorbant pads applied to the area then wrapped with 2 gauze rolls. Pt tolerated well. Will continue to monitor PRN.
[2020-05-12] MEDS: MORPHINE SULF 30 mg ER tab PO SCH ×3 (05:37→22:00)
[2020-05-12] MEDS: FUROSEMIDE 40 MG/4 ML VIAL IV SCH ×2 (05:37→19:31)
--- NOTE | 2020-05-12 08:00 | NUR ---
Received patient alert and oriented x4, not in distress, diminished sounds in bilateral lung lobes, RR=20 Sat=96%, deep breathing and coughing encouraged, demonstrated and verbalized understanding, denied SOB and chest pain, Heart R=64, A Fib on tele monitor, abdomen soft with active BS, last BM=05/08/20 as reported, morbid obesity noted, pending flores catheter, inverted pines and incontinent, bilateral lower extremities elephantiases noted, Rt. leg cuff wound covered with dry and intact dressing, resting on bed at this moment, head of bed elevated, bed on low position, rails up x2, call light on reach, will continue monitoring.
[2020-05-12 08:25] LABS: Calcium 8.7 mg/dL (8.5-10.1)
[2020-05-12 08:28] LABS: BUN/Creatinine Ratio 25.6
[2020-05-12 08:30] LABS: Potassium 2.9 mmol/L (3.5-5.1)
--- NOTE | 2020-05-12 08:30 | NUR ---
Partial bed bath and Ishan change provided, cooperated and tolerated well, we will continue monitoring.
--- NOTE | 2020-05-12 08:48 | NUR ---
Potassium l=2.9 as reported, dr. Tiago Duran was called and left a message, wiating for call back, will continue monitoring.
[2020-05-12 09:00] VITALS: BP 126/58
[2020-05-12] MEDS: levoFLOXacin 500MG 100 ML IV SCH (10:18)
[2020-05-12] MEDS: POTASSIUM CHL 20 Meq TABLET PO SCH ×2 (10:18→22:13)
[2020-05-12] MEDS: PANTOPRAZOLE 40 MG/10 ML VIAL INJ IV SCH (10:18)
[2020-05-12] MEDS: ASPirin 81 mg TAB PO SCH (10:19)
[2020-05-12] MEDS: METOPROLOL TARTRATE 25 MG TAB PO SCH ×2 (10:20→22:00)
[2020-05-12] MEDS: LISINOPRIL 5 MG TAB PO SCH (10:20)
[2020-05-12] MEDS: metOLazone 5 MG TAB PO SCH (10:21)
--- NOTE | 2020-05-12 11:30 | NUR ---
WOUND CARE NOTE: Wound care in to see patient per wound care request regarding multiple skin integrity issue that are noted present on admission. Bedside nurse, took photographs of patient's skin issue upon admission for reference. Patient is 69 years old male with admitting diagnosis of Acute Specific Interstitial Pna. Patient is resting in bed in Rm 291A. He's awake, alert and oriented. Patient is in no stated pain at this time. Patient is obese but within hospital bed weight limit. He needs assistance in turning and repositioning and his Hernan score is 13. Patient has history of lower extremity lymphedema and his BLE has dry hyperkeratotic skin. His Rt miles has raised hyperkeratotic skin. He's receiving Daily cleaning of Rt miles with dry dressing changes daily. Patient's sacral, buttocks has mild erythema appears to be moisture related. Patient is receiving BID/PRN cleaning and application of Barrier cream to sacral/ buttocks area per MD order. RECOMMENDATION: Nursing to continue with Daily/PRN dressing change to Rt miles , BID/PRN cleaning and application of Z Guard cream to sacral/buttocks per MD order, frequent turning and repositioning schedule as condition permits, redistribute pressure points with pillows, elevate BLE on pillows, continue monitoring by wound care while patent is hospitalized. Addendum: 05/12/20 at 1507 by Ly Yen RN Amended: Links added.
[2020-05-12 13:00] VITALS: BP 120/72
--- NOTE | 2020-05-12 14:30 | NUR ---
OUT OF BED WITH PT STANDING ABLE TO STANDING AND DOING ROM, TOLERATED WELL, RESTING ON BED AND RESTING AT THIS MOMENT.
[2020-05-12 17:00] VITALS: BP 111/75
[2020-05-12] MEDS ORDERED: POTASSIUM CHL 20 Meq TABLET PO ONE (17:45)
--- NOTE | 2020-05-12 19:30 | NUR ---
Opening Shift Note Assumed care of patient, awake and alert. No S/S of distress/SOB. Safety measures in place, bed in lowest position, bed rails raised x2, call light within reach. Instructed on POC and to call for assist PRN, will continue to monitor for changes Q1hr and PRN.
--- NOTE | 2020-05-12 19:36 | NUR ---
NOT IN DISTRESS, RESTING ON BED, REPORT WAS GIVEN TO THE RELIEF CHARGE NURSE RN.
[2020-05-12] MEDS ORDERED: DAPTOmycin 1,000 MG in SODIUM CHL 0.9% 50 ML IV SCH (20:00)
[2020-05-12 22:00] VITALS: BP 101/64
[2020-05-12] MEDS: APIXABAN 5 MG TAB PO SCH (22:13)
[2020-05-12] MEDS: ATORVASTATIN 20 MG TAB PO SCH (22:15)
--- NOTE | 2020-05-13 | NUR ---
Partial linen change Linens and pads changed. Pt own barrier cream applied to irritated skin and skin folds. Pt tolerated well. All needs addressed at this time, will continue to monitor for changes in status.
[2020-05-13 05:00] VITALS: BP 111/67
[2020-05-13] MEDS: OXYCODONE W/ ACETAMINOPHEN 5/325MG TABLET PO PRN ×3 (05:25→21:24)
[2020-05-13] MEDS: FUROSEMIDE 40 MG/4 ML VIAL IV SCH ×2 (06:00→18:29)
[2020-05-13] MEDS: MORPHINE SULF 30 mg ER tab PO SCH ×2 (06:00→14:00)
[2020-05-13 06:40] LABS: Basophils # (auto) 0 10 ^3/uL (0-0.2); Basophils % (auto) 0.3 % (0.0-2.0); Eosinophils # (auto) 0.2 10 ^3/uL (0-0.8); Hematocrit 30.2 % (41.0-53.0); Hemoglobin 9.7 g/dL (13.5-17.5); Lymphocytes # (auto) 1.1 10 ^3/uL (0.4-5.4); Lymphocytes % (auto) 20.1 % (10.0-50.0); Mean Corpuscular Hemoglobin 27.7 pg (28.0-32.0); Mean Corpuscular Volume 86.5 fL (80.0-100.0); Monocytes # (auto) 0.8 10 ^3/uL (0-1.3); Monocytes % (auto) 14.3 % (0.0-12.0); Neutrophils # (auto) 3.2 10 ^3/uL (1.6-8.6); Neutrophils % (auto) 61.3 % (37.0-80.0); Platelet Count (auto) 209 10^3/uL (140-450); Red Blood Cells 3.49 10^6/uL (4.5-5.90); Red Cell Distribution Width 17.4 % (11.8-14.3); White Blood Cell 5.3 10^3/uL (4.4-10.8)
[2020-05-13 06:59] LABS: Albumin 2.3 g/dL (3.4-5.0); Calcium 8.6 mg/dL (8.5-10.1); Potassium 3.6 mmol/L (3.5-5.1)
[2020-05-13 07:04] LABS: BUN/Creatinine Ratio 29.9; Bilirubin, Total 1.2 mg/dL (0.2-1.0); Total Protein 7.4 g/dL (6.4-8.2)
[2020-05-13] MEDS: Ensure Enlive Strawberry 8oz Bottle PO SCH ×3 (07:09→18:29)
--- NOTE | 2020-05-13 07:30 | NUR ---
Opening Note Assumed pt care from NOC RN. Pt is a/ox4 with no s/s of distress or SOB. Pt. in bed with no complaints at this time. Discussed POC with pt; pt verbalized understanding. Safety measures maintained with call light within reach, bed in lowest position and side rails up. Will continue to monitor.
[2020-05-13 09:00] VITALS: BP 119/62
[2020-05-13] MEDS: ASPirin 81 mg TAB PO SCH (09:36)
[2020-05-13] MEDS: POTASSIUM CHL 20 Meq TABLET PO SCH (09:37)
[2020-05-13] MEDS: APIXABAN 5 MG TAB PO SCH (09:37)
[2020-05-13] MEDS: PANTOPRAZOLE 40 MG/10 ML VIAL INJ IV SCH (09:38)
[2020-05-13] MEDS: METOPROLOL TARTRATE 25 MG TAB PO SCH (09:38)
[2020-05-13] MEDS: metOLazone 5 MG TAB PO SCH (09:39)
[2020-05-13] MEDS: LISINOPRIL 5 MG TAB PO SCH (09:40)
--- NOTE | 2020-05-13 10:00 | NUR ---
Encouraged to turn to sides,call light within reach instructed to call for assistance,verbalized understanding
--- NOTE | 2020-05-13 10:05 | NUR ---
1000 05/13/20 faxed to [facility] hospice case manager at [phone] face sheet, Order for home IV Abx (Daptomicin 1000mg IV daily x 14 days), wound care, physical therapy and showering. Patient uses [facility]. Pending review and approved authorization.
--- NOTE | 2020-05-13 11:51 | NUR ---
c/o back and bilateral leg pain,medicated with Percocet 5/325,2 tablets
[2020-05-13 13:00] VITALS: BP 124/67
--- NOTE | 2020-05-13 13:52 | NUR ---
MD VISIT HERE TO SEE AND EXAMINED PATIENT,STATED IF EVERYTHING IS ARRANGED TODAY WILL DISCHARGED TODAY IF NOT IN A.M.
--- NOTE | 2020-05-13 13:55 | NUR ---
PHYSICAL THERAPY AT BEDSIDE,ASSISTED PATIENT OOB WITH WALKER,HEART RATE UP TO 165,C/O DIZZINESS,INTRUCTED P.T. TO PIT PATIENT BACK TO BED.
--- NOTE | 2020-05-13 13:59 | NUR ---
CLIFFORD INFORMED AND MADE AWARE OF HR AND DIZZINESS DURING ACTIVITY
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
--- NOTE | 2020-05-13 14:35 | NUR ---
Received a call from Liliana Hendrickson regarding high share cost of home IV Abx Daptomycin, informed her Dr Ordoñez at the Nurses station, also informed her patient will be needing gurney/transportation when discharge due to patient unable to sit up long due to status and dizziness.
[2020-05-13] MEDS ORDERED: LINEZOLID 600MG/300ML 300 ML IV SCH (14:47)
--- NOTE | 2020-05-13 15:13 | NUR ---
1449 - Contacted by [facility] director case management regarding high share cost of home IV Abx Daptomycin, informed Dr Ordoñez who wrote new order for IV or PO Zyvox 600 mg q12 hrs. New order sent to [facility]. Pending review and approval.
--- NOTE | 2020-05-13 16:34 | NUR ---
1630 05/13/20 - Patient has been accepted for home health with [facility] starting tomorrow 05/14/20, Patient will be going home on Zyvox 600mg PO, [place]EMORE will be sitting up Transportation with [facility] for pick up truck driver at 2000, pt is aware of copay of 100.00 for transportation. Nurse caring for patient Isabella is aware of all information
--- NOTE | 2020-05-13 16:38 | NUR ---
CALLED AND INFORMED PATIENT NEEDING PRESCRIPTION FOR ZYVOX PO,RECEIVED ORDER TO CALL IN TO PATIENT PHARMACY ZYVOX 600 MG PO Q 12 HOURS X 14 DAYS.
--- NOTE | 2020-05-13 16:41 | NUR ---
CALLED [facility] (PATIENT LISTED PREFERRED PHARMACY) SPOKE TO TOMMY PHARMACIST RE PRESCRIPTION OF ZYVOX 600 MG PO Q 12 HOURS X 14 DAYS.
[2020-05-13 17:05] VITALS: BP 130/72
[2020-05-13 17:07] VITALS: BP 116/64
--- NOTE | 2020-05-13 19:18 | NUR ---
Report given to incoming noc shift,no discomfort,no distress.awaiting for picker and sorter load and unload for discharge.
== END 2020-05-13 20:27 | disposition home health service (06) | DRG 603 ==
LOC: ER 12:18 → EDBD 12:18 → TELE 12:19 → TELE-EAST 05-10 04:27 → TELE-WESTW 05-10 18:30
PROVIDERS: ADMIT Hospitalist; ATTEND Internal Medicine Geriatric Medicine
DX: L03.115 Cellulitis of right lower limb (principal); R78.81 Bacteremia; J84.9 Interstitial pulmonary disease, unspecified; Z68.42 Body mass index [BMI] 45.0-49.9, adult; I74.9 Embolism and thrombosis of unspecified artery; L03.116 Cellulitis of left lower limb; D50.9 Iron deficiency anemia, unspecified; D63.8 Anemia in other chronic diseases classified elsewhere; E66.01 Morbid (severe) obesity due to excess calories; E86.0 Dehydration; E87.6 Hypokalemia; I89.0 Lymphedema, not elsewhere classified; I50.9 Heart failure, unspecified; R33.9 Retention of urine, unspecified; R74.8 Abnormal levels of other serum enzymes; D72.810 Lymphocytopenia; D72.828 Other elevated white blood cell count; R32 Unspecified urinary incontinence; Z88.6 Allergy status to analgesic agent; Z88.0 Allergy status to penicillin; Z88.8 Allergy status to other drugs, medicaments and biological substances; Z20.828 Contact with and (suspected) exposure to other viral communicable diseases; D53.9 Nutritional anemia, unspecified; I48.91 Unspecified atrial fibrillation; I70.0 Atherosclerosis of aorta; Q55.64 Hidden penis; Z82.49 Family history of ischemic heart disease and other diseases of the circulatory system; Z83.3 Family history of diabetes mellitus; Z95.0 Presence of cardiac pacemaker
CPT/HCPCS: 36415; 71045; 80048; 80053; 80061; 80202; 82728; 83036; 83605; 83615; 83735; 83880; 84100; 84443; 84484; 85025; 85379; 86141; 87040; 87070; 87077; 87186; 87804; 87880; 93005; 96361; 96365; 96375; 97163; C9113; G0378; J0131; J1956; J3490

== ENCOUNTER 2022-10-06 01:26 | Observation (INO) | payer OTHER, MEDICAID ==
[~2022-10-06] VITALS: Ht 185.4 cm; Wt 150.0 kg
[2022-10-06 03:02] LABS: Basophils # (auto) 0 10 ^3/uL (0-0.2); Basophils % (auto) 0.4 % (0.0-2.0); Eosinophils # (auto) 0 10 ^3/uL (0-0.8); Eosinophils % (auto) 0.3 % (0.0-7.0); Hemoglobin 10.5 g/dL (13.5-17.5); Lymphocytes # (auto) 0.7 10 ^3/uL (0.4-5.4); Lymphocytes % (auto) 22.6 % (10.0-50.0); Mean Corpuscular Hgb Conc. 31.8 g/dL (32.0-36.0); Mean Corpuscular Volume 94.4 fL (80.0-100.0); Monocytes # (auto) 0.4 10 ^3/uL (0-1.3); Monocytes % (auto) 13.8 % (0.0-12.0); Neutrophils # (auto) 1.8 10 ^3/uL (1.6-8.6); Neutrophils % (auto) 62.9 % (37.0-80.0); Red Cell Distribution Width 15.4 % (11.8-14.3); White Blood Cell 2.9 10^3/uL (4.4-10.8)
[2022-10-06 03:29] LABS: Alanine Aminotransferase 22 U/L (16-61); Anion Gap 6 (5-15); Aspartate Aminotransferase 48 U/L (15-37); BUN/Creatinine Ratio 22.6; Blood Urea Nitrogen 19 mg/dL (7-18); Calcium 7.9 mg/dL (8.5-10.1); Carbon Dioxide 22 mmol/L (21-32); Chloride 110 mmol/L (98-107); GFR African American 116 mL/min; GFR Non-African American 95 mL/min; Glucose 95 mg/dL (74-106); Sodium 138 mmol/L (136-145)
[2022-10-06 03:32] LABS: Alkaline Phosphatase 80 U/L (45-117); Total Protein 7.6 g/dL (6.4-8.2)
[2022-10-06 04:23] LABS: INR 1.07 (0.9-1.15); Partial Thromboplastin Time 29.1 sec (24.6-33.4)
[2022-10-06] MEDS ORDERED: MORPHINE SULFATE INJ 2 MG/ml SYRG IV PRN (07:00)
[2022-10-06] MEDS ORDERED: NITROGLYCERIN 0.4 MG SL TAB SL PRN (07:00)
[2022-10-06] MEDS ORDERED: PANTOPRAZOLE 40mg/50ML NS AE 50 ML IV ONE (07:00)
[2022-10-06] MEDS ORDERED: ACETAMINOPHEN 325 MG TAB PO PRN (07:00)
[2022-10-06] MEDS ORDERED: ONDANSETRON HCL 4 MG/2 ML VIAL IV PRN (07:00)
[2022-10-06 12:19] LABS: Hematocrit 28.7 % (41.0-53.0); Hemoglobin 9.5 g/dL (13.5-17.5)
[2022-10-06] MEDS ORDERED: OXYCODONE W/ ACETAMINOPHEN 5/325MG TABLET PO PRN (13:00)
[2022-10-06] MEDS ORDERED: PANT40TA2 PO (13:24)
[2022-10-06] MEDS ORDERED: SUCR1TAB PO (13:24)
[2022-10-06] MEDS ORDERED: MORPHINE SULFATE 30 MG PO SCH (14:00)
[2022-10-06 14:41] VITALS: BP 150/77
[2022-10-06] MEDS ORDERED: SUCRALFATE 1 GM TAB PO SCH (17:00)
[2022-10-06] MEDS ORDERED: FUROSEMIDE 40 MG TAB PO SCH (22:00)
[2022-10-06] MEDS ORDERED: PANTOPRAZOLE 40 MG TAB PO SCH (22:00)
[2022-10-07] MEDS ORDERED: POTASSIUM CHL 20 Meq TABLET PO SCH (10:00)
== END 2022-10-06 15:48 | disposition home or self-care (01) ==
LOC: EDSEX 01:26 → EDBD 01:26 → ER 01:26 → TELE 07:10 → UNDOADMOB 07:10 → UNDOADMIN 07:10 → TELE 07:10 → UNDODISOB 15:48 → UNDODISIN 16:05
PROVIDERS: ADMIT Nurse Practitioner Family; ATTEND Nurse Practitioner Family
DX: K27.9 Peptic ulcer, site unspecified, unspecified as acute or chronic, without hemorrhage or perforation (principal); D64.9 Anemia, unspecified; I11.0 Hypertensive heart disease with heart failure; I50.9 Heart failure, unspecified; I48.91 Unspecified atrial fibrillation; E66.01 Morbid (severe) obesity due to excess calories; Z88.0 Allergy status to penicillin; Z79.899 Other long term (current) drug therapy; Z88.6 Allergy status to analgesic agent; Z95.0 Presence of cardiac pacemaker; Z98.84 Bariatric surgery status
CPT/HCPCS: 36415; 74175; 80053; 82553; 83605; 83690; 84484; 85014; 85018; 85025; 85610; 85730; 86850; 86900; 86901; 93005; 96365; 96366; 99285; G0378

== ENCOUNTER → 2023-04-27 | Outpatient (CLI) | payer OTHER, MEDICAID ==
[~2023-04-27] MED LIST changes: -MORP1CAP31 PO; +MORP30CA31 PO; +PANT40TA2 PO; +SUCR1TAB PO
[2023-04-27 10:45] LABS: Basophils # (auto) 0 10 ^3/uL (0-0.2); Basophils % (auto) 0.8 % (0.0-2.0); Eosinophils # (auto) 0.2 10 ^3/uL (0-0.8); Eosinophils % (auto) 6.4 % (0.0-7.0); Hemoglobin 10.5 g/dL (13.5-17.5); Lymphocytes # (auto) 0.8 10 ^3/uL (0.4-5.4); Lymphocytes % (auto) 27.6 % (10.0-50.0); Mean Corpuscular Hgb Conc. 32.8 g/dL (32.0-36.0); Mean Corpuscular Volume 91.5 fL (80.0-100.0); Monocytes # (auto) 0.4 10 ^3/uL (0-1.3); Monocytes % (auto) 11.9 % (0.0-12.0); Neutrophils # (auto) 1.6 10 ^3/uL (1.6-8.6); Neutrophils % (auto) 53.3 % (37.0-80.0); Nucleated Red Blood Cells % 0.5 %
[2023-04-27 10:46] LABS: Urine Bacteria NONE SEEN /hpf (None Seen); Urine Blood Negative /uL (Negative); Urine Specific Gravity 1.007 (1.001-1.035); Urine WBC <1 /hpf (0 - 3)
[2023-04-27 11:44] LABS: Folate (Folic Acid) 13.06 ng/mL (5.38-24)
[2023-04-27 14:34] LABS: Calcium 8.7 mg/dL (8.5-10.1); Potassium 4.3 mmol/L (3.5-5.1); Uric Acid 4.8 mg/dL (3.5-7.2)
[2023-04-27 14:38] LABS: BUN/Creatinine Ratio 14.8 (10.0-20.0); Bilirubin, Total 1.2 mg/dL (0.2-1.0); Total Protein 7.6 g/dL (6.4-8.2)
== END | disposition home or self-care (01) ==
LOC: LAB 10:17
PROVIDERS: ATTEND Internal Medicine
DX: E61.2 Magnesium deficiency (principal); E79.0 Hyperuricemia without signs of inflammatory arthritis and tophaceous disease; R94.6 Abnormal results of thyroid function studies; R82.998 Other abnormal findings in urine; E55.9 Vitamin D deficiency, unspecified; R82.90 Unspecified abnormal findings in urine; R82.79 Other abnormal findings on microbiological examination of urine; D51.9 Vitamin B12 deficiency anemia, unspecified; R78.89 Finding of other specified substances, not normally found in blood; R68.89 Other general symptoms and signs; R73.09 Other abnormal glucose; E78.49 Other hyperlipidemia
CPT/HCPCS: 36415; 80053; 80061; 81001; 82306; 82607; 82746; 83036; 84443; 84550; 85025; 87086

== ENCOUNTER 2023-06-15 22:17 | Inpatient (IN) | payer OTHER, MEDICAID ==
[~2023-06-15] VITALS: Ht 182.9 cm; Wt 163.2 kg
[2023-06-16] VITALS (13 sets, daily range): BP systolic 129–166; BP diastolic 61–89; PULSE 56–78; RESP 19–26; TEMP 98–99.4; O2SAT 94–99
[2023-06-16] MEDS ORDERED: VANCOMYCIN PER PHARMACY 0 MG IV SCH (00:30)
[2023-06-16] MEDS ORDERED: MORPHINE SULFATE INJ 2 MG/ml SYRG IV PRN (00:30)
[2023-06-16] MEDS ORDERED: NITROGLYCERIN 0.4 MG SL TAB SL PRN (00:30)
[2023-06-16] MEDS ORDERED: DOCUSATE SOD 100 MG CAP PO PRN (00:30)
[2023-06-16] MEDS ORDERED: ONDANSETRON HCL 4 MG/2 ML VIAL IV PRN (00:30)
[2023-06-16] MEDS ORDERED: hydrALAZINE HCL 20 MG/ML VL IV PRN (00:30)
[2023-06-16] MEDS ORDERED: VANCOMYCIN 1GM/250ML 250 ML IV ONE (02:00)
[2023-06-16] MEDS: MORPHINE SULFATE INJ 2 MG/ml SYRG IV PRN ×2 (05:12→09:21)
[2023-06-16] MEDS: SODIUM CHLOR 0.9% PF (SALINE LOCK) 10ML VIAL/SYR IV SCH ×3 (06:00→21:28)
[2023-06-16 06:49] LABS: Basophils # (auto) 0 10 ^3/uL (0-0.2); Basophils % (auto) 0.2 % (0.0-2.0); Eosinophils # (auto) 0 10 ^3/uL (0-0.8); Eosinophils % (auto) 0.6 % (0.0-7.0); Hematocrit 33.4 % (41.0-53.0); Hemoglobin 10.8 g/dL (13.5-17.5); Lymphocytes # (auto) 0.5 10 ^3/uL (0.4-5.4); Lymphocytes % (auto) 10.4 % (10.0-50.0); Mean Corpuscular Hgb Conc. 32.2 g/dL (32.0-36.0); Mean Corpuscular Volume 93.3 fL (80.0-100.0); Monocytes # (auto) 0.5 10 ^3/uL (0-1.3); Monocytes % (auto) 12.2 % (0.0-12.0); Neutrophils # (auto) 3.3 10 ^3/uL (1.6-8.6); Neutrophils % (auto) 76.6 % (37.0-80.0); Nucleated Red Blood Cells % 0.1 %; Red Blood Cells 3.58 10^6/uL (4.5-5.90); Red Cell Distribution Width 15.3 % (11.8-14.3); White Blood Cell 4.3 10^3/uL (4.4-10.8)
[2023-06-16 06:59] LABS: Alanine Aminotransferase 86 U/L (7-40); Albumin 3.2 g/dL (3.2-4.8); Alkaline Phosphatase 167 U/L (46-116); Anion Gap 8.6 (5-15); Aspartate Aminotransferase 175 U/L (13-40); BUN/Creatinine Ratio 13.9 (10.0-20.0); Blood Urea Nitrogen 10 mg/dL (9-23); Calcium 8.4 mg/dL (8.7-10.4); Carbon Dioxide 23.4 mmol/L (20-30); Chloride 107 mmol/L (98-107); Glucose 103 mg/dL (74-106); Potassium 3.5 mmol/L (3.5-5.1); Sodium 139 mmol/L (136-145)
[2023-06-16 07:00] LABS: Bilirubin, Total 3.1 mg/dL (0.2-1.0); Total Protein 6.8 g/dL (5.7-8.2)
[2023-06-16] MEDS: ZINC SULFATE 220mg CAP or TAB PO SCH (09:19)
[2023-06-16] MEDS: ASCORBIC ACID 500 MG TAB PO SCH ×2 (09:19→21:23)
[2023-06-16] MEDS: FUROSEMIDE 40 MG/4 ML VIAL IV SCH (09:20)
[2023-06-16] MEDS: ASPirin 81 mg TAB PO SCH (09:20)
[2023-06-16] MEDS: FAMOTIDINE (10MG/ML) 2ML VL IV SCH ×2 (09:20→21:24)
[2023-06-16] MEDS ORDERED: levoFLOXacin 500 MG TAB PO ONE (10:45)
[2023-06-16] MEDS ORDERED: LOSARTAN POTASSIUM 25 MG TAB PO ONE (10:45)
[2023-06-16] MEDS: OXYCODONE W/ ACETAMINOPHEN 5/325MG TABLET PO PRN ×2 (15:10→21:23)
[2023-06-16] MEDS: VANCOMYCIN 1GM/250ML 250 ML IV SCH (15:53)
[2023-06-16] MEDS ORDERED: PROMETHAZINE-DM 5 ML ORAL SYRUP PO PRN (21:00)
[2023-06-16] MEDS ORDERED: PROMETHAZINE W/CODEINE 5 ML ORAL SYRUP PO PRN (21:00)
[2023-06-16] MEDS: ALBUTEROL SULF 2.5 MG/0.5ML(0.5%) NEB SOLN NEB PRN (21:16)
[2023-06-16] MEDS: NYSTATIN TOPICAL POWDER 15GM TOP SCH (22:00)
[2023-06-17] VITALS (15 sets, daily range): BP systolic 127–174; BP diastolic 64–84; PULSE 58–86; RESP 16–22; TEMP 97.7–98.4; O2SAT 93–99
[2023-06-17] MEDS: VANCOMYCIN 1GM/250ML 250 ML IV SCH ×2 (02:13→13:58)
[2023-06-17] MEDS: OXYCODONE W/ ACETAMINOPHEN 5/325MG TABLET PO PRN ×4 (03:28→20:32)
[2023-06-17] MEDS: ALBUTEROL SULF 2.5 MG/0.5ML(0.5%) NEB SOLN NEB PRN ×3 (04:36→19:21)
[2023-06-17] MEDS: SODIUM CHLOR 0.9% PF (SALINE LOCK) 10ML VIAL/SYR IV SCH ×3 (06:14→21:26)
[2023-06-17] MEDS: IBUPROFEN 600 MG TAB PO PRN (06:14)
[2023-06-17 07:13] LABS: Basophils # (auto) 0 10 ^3/uL (0-0.2); Basophils % (auto) 0.2 % (0.0-2.0); Eosinophils # (auto) 0 10 ^3/uL (0-0.8); Eosinophils % (auto) 1.2 % (0.0-7.0); Hematocrit 32.5 % (41.0-53.0); Hemoglobin 10.5 g/dL (13.5-17.5); Lymphocytes # (auto) 0.4 10 ^3/uL (0.4-5.4); Lymphocytes % (auto) 11.9 % (10.0-50.0); Mean Corpuscular Hemoglobin 29.9 pg (28.0-32.0); Mean Corpuscular Hgb Conc. 32.3 g/dL (32.0-36.0); Mean Corpuscular Volume 92.7 fL (80.0-100.0); Monocytes # (auto) 0.4 10 ^3/uL (0-1.3); Monocytes % (auto) 12.1 % (0.0-12.0); Neutrophils # (auto) 2.7 10 ^3/uL (1.6-8.6); Neutrophils % (auto) 74.6 % (37.0-80.0); Nucleated Red Blood Cells % 0.1 %; Red Cell Distribution Width 15.4 % (11.8-14.3); White Blood Cell 3.7 10^3/uL (4.4-10.8)
[2023-06-17 08:36] LABS: Alanine Aminotransferase 59 U/L (7-40); Albumin 3.2 g/dL (3.2-4.8); Alkaline Phosphatase 137 U/L (46-116); Anion Gap 8.1 (5-15); Aspartate Aminotransferase 78 U/L (13-40); BUN/Creatinine Ratio 12.5 (10.0-20.0); Bilirubin, Total 1.9 mg/dL (0.2-1.0); Blood Urea Nitrogen 9 mg/dL (9-23); Calcium 8.5 mg/dL (8.5-10.1); Carbon Dioxide 24.9 mmol/L (20-30); Chloride 107 mmol/L (98-107); Glucose 113 mg/dL (74-106); Potassium 3.4 mmol/L (3.5-5.1); Sodium 140 mmol/L (136-145); Total Protein 6.7 g/dL (5.7-8.2)
[2023-06-17] MEDS: FAMOTIDINE (10MG/ML) 2ML VL IV SCH ×2 (08:42→21:25)
[2023-06-17] MEDS: FUROSEMIDE 40 MG/4 ML VIAL IV SCH (08:43)
[2023-06-17] MEDS: ZINC SULFATE 220mg CAP or TAB PO SCH (08:44)
[2023-06-17] MEDS: ASPirin 81 mg TAB PO SCH (08:45)
[2023-06-17] MEDS: ASCORBIC ACID 500 MG TAB PO SCH ×2 (08:45→21:25)
[2023-06-17] MEDS: levoFLOXacin 500 MG TAB PO SCH (08:45)
[2023-06-17] MEDS: LOSARTAN POTASSIUM 25 MG TAB PO SCH (08:46)
[2023-06-17] MEDS: NYSTATIN TOPICAL POWDER 15GM TOP SCH ×2 (10:00→21:33)
[2023-06-18] VITALS (11 sets, daily range): BP systolic 131–152; BP diastolic 68–83; PULSE 50–82; RESP 16–20; TEMP 97.6–98.6; O2SAT 95–99
[2023-06-18] MEDS: VANCOMYCIN 1GM/250ML 250 ML IV SCH ×2 (01:56→14:41)
[2023-06-18] MEDS: OXYCODONE W/ ACETAMINOPHEN 5/325MG TABLET PO PRN ×4 (02:33→21:42)
[2023-06-18] MEDS: SODIUM CHLOR 0.9% PF (SALINE LOCK) 10ML VIAL/SYR IV SCH ×3 (06:00→21:47)
[2023-06-18] MEDS: ALBUTEROL SULF 2.5 MG/0.5ML(0.5%) NEB SOLN NEB PRN ×2 (07:28→17:40)
[2023-06-18] MEDS: ASPirin 81 mg TAB PO SCH (08:59)
[2023-06-18] MEDS: ZINC SULFATE 220mg CAP or TAB PO SCH (08:59)
[2023-06-18] MEDS: ASCORBIC ACID 500 MG TAB PO SCH ×2 (08:59→21:47)
[2023-06-18] MEDS: levoFLOXacin 500 MG TAB PO SCH (09:00)
[2023-06-18] MEDS: LOSARTAN POTASSIUM 25 MG TAB PO SCH (09:00)
[2023-06-18] MEDS: NYSTATIN TOPICAL POWDER 15GM TOP SCH ×2 (09:01→21:49)
[2023-06-18] MEDS: FAMOTIDINE (10MG/ML) 2ML VL IV SCH ×2 (09:01→21:47)
[2023-06-18] MEDS: FUROSEMIDE 40 MG/4 ML VIAL IV SCH (09:01)
[2023-06-19] VITALS (8 sets, daily range): BP systolic 138–149; BP diastolic 68–81; PULSE 61–71; RESP 17–19; TEMP 98–98.5; O2SAT 94–98
[2023-06-19] MEDS: VANCOMYCIN 1GM/250ML 250 ML IV SCH ×2 (01:53→14:03)
[2023-06-19] MEDS: OXYCODONE W/ ACETAMINOPHEN 5/325MG TABLET PO PRN ×3 (03:47→17:09)
[2023-06-19] MEDS: SODIUM CHLOR 0.9% PF (SALINE LOCK) 10ML VIAL/SYR IV SCH ×2 (06:40→14:04)
[2023-06-19] MEDS: FAMOTIDINE (10MG/ML) 2ML VL IV SCH ×2 (10:00→10:08)
[2023-06-19] MEDS: FUROSEMIDE 40 MG/4 ML VIAL IV SCH ×2 (10:00→10:09)
[2023-06-19] MEDS: NYSTATIN TOPICAL POWDER 15GM TOP SCH (10:00)
[2023-06-19] MEDS: ZINC SULFATE 220mg CAP or TAB PO SCH (10:07)
[2023-06-19] MEDS: ASCORBIC ACID 500 MG TAB PO SCH (10:07)
[2023-06-19] MEDS: levoFLOXacin 500 MG TAB PO SCH (10:07)
[2023-06-19] MEDS: ASPirin 81 mg TAB PO SCH (10:08)
[2023-06-19] MEDS: LOSARTAN POTASSIUM 25 MG TAB PO SCH (10:08)
[2023-06-19] MEDS ORDERED: CEPH250C PO (14:03)
[2023-06-19] MEDS: IBUPROFEN 600 MG TAB PO PRN (14:08)
[2023-06-19 14:26] LABS: Hepatitis A Total Antibody Negative (Negative); Hepatitis B Surface Antibody Negative (Negative); Hepatitis C Antibody Negative (Negative)
[2023-06-19 14:27] LABS: Hepatitis B Surface Antigen Negative (Negative)
[2023-06-19 14:34] LABS: Hepatitis B Core Total AB Positive (Negative)
== END 2023-06-19 17:28 | disposition home or self-care (01) | DRG 603 ==
LOC: EAST 23:47 → TELE-EAST 06-16 13:49
PROVIDERS: ADMIT Nurse Practitioner Family; ATTEND Internal Medicine
DX: L03.115 Cellulitis of right lower limb (principal); I50.32 Chronic diastolic (congestive) heart failure; Z68.43 Body mass index [BMI] 50.0-59.9, adult; L03.116 Cellulitis of left lower limb; N50.89 Other specified disorders of the male genital organs; I48.91 Unspecified atrial fibrillation; E78.5 Hyperlipidemia, unspecified; D64.9 Anemia, unspecified; I11.0 Hypertensive heart disease with heart failure; R26.81 Unsteadiness on feet; E66.01 Morbid (severe) obesity due to excess calories; Z88.0 Allergy status to penicillin; Z88.6 Allergy status to analgesic agent; Z98.84 Bariatric surgery status; Z82.49 Family history of ischemic heart disease and other diseases of the circulatory system; Z83.3 Family history of diabetes mellitus; Z90.49 Acquired absence of other specified parts of digestive tract
CPT/HCPCS: 36415; 71045; 76705; 80053; 80202; 82140; 83880; 84443; 85025; 86704; 86706; 86708; 86803; 87340; 93306; 94640; 97163; G0378; J2405; J3490

== ENCOUNTER 2023-11-22 09:10 | Inpatient (IN) | payer OTHER ==
[~2023-11-22] VITALS: Ht 182.9 cm; Wt 171.2 kg
[~2023-11-22 09:10] MED LIST changes: +CEPH250C PO; -PERCOT PO
[2023-11-22] MEDS ORDERED: MORPHINE SULFATE INJ 2 MG/ml SYRG IV PRN (17:30)
[2023-11-22] MEDS ORDERED: DOCUSATE SOD 100 MG CAP PO PRN (17:30)
[2023-11-22] MEDS ORDERED: NITROGLYCERIN 0.4 MG SL TAB SL PRN (17:30)
[2023-11-22] MEDS ORDERED: ACETAMINOPHEN 325 MG TAB PO PRN (17:30)
[2023-11-22] MEDS ORDERED: ONDANSETRON HCL 4 MG/2 ML VIAL IV PRN (17:30)
[2023-11-22] MEDS ORDERED: METO25TA93 PO (17:51)
[2023-11-22] MEDS: SUCRALFATE 1 GM TAB PO SCH (18:00)
[2023-11-22 18:08] VITALS: BP 156/88; PULSE 72; RESP 20; TEMP 97.7; O2SAT 96
[2023-11-22 19:37] LABS: Basophils # (auto) 0 10 ^3/uL (0-0.2); Basophils % (auto) 0.4 % (0.0-2.0); Eosinophils # (auto) 0.1 10 ^3/uL (0-0.8); Eosinophils % (auto) 3.5 % (0.0-7.0); Hematocrit 33.6 % (41.0-53.0); Lymphocytes # (auto) 0.7 10 ^3/uL (0.4-5.4); Lymphocytes % (auto) 23.9 % (10.0-50.0); Mean Corpuscular Hemoglobin 30.6 pg (28.0-32.0); Mean Corpuscular Hgb Conc. 32.7 g/dL (32.0-36.0); Mean Corpuscular Volume 93.5 fL (80.0-100.0); Monocytes # (auto) 0.5 10 ^3/uL (0-1.3); Monocytes % (auto) 16.6 % (0.0-12.0); Neutrophils # (auto) 1.5 10 ^3/uL (1.6-8.6); Neutrophils % (auto) 55.6 % (37.0-80.0); Nucleated Red Blood Cells % 0.2 %; Red Blood Cells 3.59 10^6/uL (4.5-5.90); Red Cell Distribution Width 15.8 % (11.8-14.3); White Blood Cell 2.7 10^3/uL (4.4-10.8)
[2023-11-22 19:41] LABS: Chloride 105 mmol/L (98-107); Potassium 3.8 mmol/L (3.5-5.1); Sodium 141 mmol/L (136-145)
[2023-11-22 19:42] LABS: Anion Gap 6 (5-15); Calcium 9.1 mg/dL (8.5-10.1); Carbon Dioxide 30 mmol/L (20-30)
[2023-11-22 19:47] LABS: BUN/Creatinine Ratio 11.8 (10.0-20.0); Blood Urea Nitrogen 10 mg/dL (9-23); Glucose 84 mg/dL (74-106)
[2023-11-22 20:00] VITALS: BP 146/73; PULSE 63; PULSE 76; RESP 16; TEMP 98.3; O2SAT 93
[2023-11-22] MEDS: OXYCODONE W/ ACETAMINOPHEN 5/325MG TABLET PO PRN (20:38)
[2023-11-22 22:00] VITALS: BP 146/73; PULSE 63; RESP 16; TEMP 98.3; O2SAT 91
[2023-11-22] MEDS: SODIUM CHLOR 0.9% PF (SALINE LOCK) 10ML VIAL/SYR IV SCH (22:03)
[2023-11-22] MEDS: METOPROLOL SUCCINATE XL 50 MG TAB PO SCH (22:04)
[2023-11-23] VITALS (9 sets, daily range): BP systolic 140–171; BP diastolic 81–94; PULSE 43–89; RESP 16–20; TEMP 36.4; O2SAT 92–96
[2023-11-23 06:11] LABS: Hematocrit 31.7 % (41.0-53.0); Hemoglobin 10.4 g/dL (13.5-17.5); Mean Corpuscular Hemoglobin 30.9 pg (28.0-32.0); Mean Corpuscular Hgb Conc. 32.8 g/dL (32.0-36.0); Mean Corpuscular Volume 94.1 fL (80.0-100.0); Red Blood Cells 3.37 10^6/uL (4.5-5.90); Red Cell Distribution Width 16.1 % (11.8-14.3); White Blood Cell 2.5 10^3/uL (4.4-10.8)
[2023-11-23 06:30] LABS: Band Neutrophils % (manual) 0; Basophils % (manual) 0 (0.0-2.0); Blast Cells 0; Metamyelocytes % 0; Myelocytes % 0; Promyelocytes % 0; Reactive Lymphocytes 0
[2023-11-23 06:33] LABS: Alanine Aminotransferase 17 U/L (7-40); Albumin 2.9 g/dL (3.2-4.8); Alkaline Phosphatase 73 U/L (46-116); Anion Gap 7 (5-15); Aspartate Aminotransferase 25 U/L (13-40); BUN/Creatinine Ratio 12.2 (10.0-20.0); Bilirubin, Total 1.3 mg/dL (0.2-1.0); Blood Urea Nitrogen 10 mg/dL (9-23); Calcium 8.9 mg/dL (8.5-10.1); Carbon Dioxide 29 mmol/L (20-30); Chloride 106 mmol/L (98-107); Glucose 84 mg/dL (74-106); Potassium 3.9 mmol/L (3.5-5.1); Sodium 142 mmol/L (136-145); Total Protein 6.1 g/dL (5.7-8.2)
[2023-11-23 07:50] LABS: Eosinophils % (manual) 3 (0-7); Lymphocytes % (manual) 28 (10.0-50.0); Monocytes % (manual) 18 (0-12); Platelet Estimate Adequate; RBC Morphology Normal
[2023-11-23 09:35] LABS: Folate (Folic Acid) 15.91 ng/mL (>5.38)
[2023-11-23] MEDS: ENOXAPARIN SOD 40 MG/0.4 ML SYRINGE SC SCH (09:56)
[2023-11-23] MEDS: FUROSEMIDE 40 MG/4 ML VIAL IV SCH (10:00)
[2023-11-23] MEDS ORDERED: FUROSEMIDE 40 MG/4 ML VIAL IV SCH (10:00)
[2023-11-23] MEDS ORDERED: AZIT500T66 PO (10:57)
[2023-11-23 11:27] LABS: Thyroid Stimulating Hormone 1.3 uIU/mL (0.55-4.78)
[2023-11-23 11:29] LABS: INR 1.26 (0.9-1.15); Partial Thromboplastin Time 25.7 SEC (24.5-34.5)
[2023-11-23 11:50] LABS: Magnesium 1.8 mg/dL (1.6-2.6)
[2023-11-23 12:02] LABS: COVID19 ANTIGEN SOFIA FIA NEGATIVE (NEGATIVE)
[2023-11-23 12:03] LABS: Rapid Influenza A Negative (Negative); Rapid Influenza B Negative (Negative)
[2023-11-23] MEDS ORDERED: AUG875T PO (12:12)
[2023-11-23 13:05] LABS: % Iron Saturation 19.4 % (20-55)
[2023-11-23] MEDS: PANTOPRAZOLE 40 MG TAB PO SCH (13:09)
[2023-11-23] MEDS: ENALAPRIL MALEATE 2.5 MG TAB PO SCH (13:11)
[2023-11-23] MEDS: MORPHINE SULFATE INJ 2 MG/ml SYRG IV ONE (15:48)
[2023-11-23] MEDS: IPRATROPIUM BROM 0.5 MG/2.5ML INH SOL NEB SCH (18:12)
[2023-11-23] MEDS ORDERED: ENAL2.5T11 PO (21:52)
== END 2023-11-23 17:21 | disposition home health service (06) | DRG 291 ==
LOC: TELE-CENTR 16:49
PROVIDERS: ADMIT Internal Medicine; ATTEND Internal Medicine
DX: I11.0 Hypertensive heart disease with heart failure (principal); I50.33 Acute on chronic diastolic (congestive) heart failure; J18.9 Pneumonia, unspecified organism; I48.20 Chronic atrial fibrillation, unspecified; Z68.43 Body mass index [BMI] 50.0-59.9, adult; R26.2 Difficulty in walking, not elsewhere classified; E78.5 Hyperlipidemia, unspecified; E66.01 Morbid (severe) obesity due to excess calories; Z20.822 Contact with and (suspected) exposure to COVID-19; I89.0 Lymphedema, not elsewhere classified; D64.9 Anemia, unspecified; E80.6 Other disorders of bilirubin metabolism; Z88.0 Allergy status to penicillin; Z88.6 Allergy status to analgesic agent; Z90.49 Acquired absence of other specified parts of digestive tract; Z82.49 Family history of ischemic heart disease and other diseases of the circulatory system; Z83.3 Family history of diabetes mellitus; Z79.899 Other long term (current) drug therapy
CPT/HCPCS: 36415; 71045; 80048; 80053; 80061; 82306; 82607; 82746; 83036; 83540; 83550; 83615; 83735; 83880; 84443; 85007; 85025; 85027; 85045; 85610; 85730; 87040; 87426; 87804; 93005; 94640; 97163; G0378